=== PATIENT | female | born 1965 | race Caucasian/White ===

== ENCOUNTER 2016-10-16 12:12 | Emergency (ER) | payer OTHER ==
[~2016-10-16] VITALS: Ht 165.1 cm; Wt 136.7 kg
[~2016-10-16 12:12] MED LIST: ATV1 SL; CHOL100010 PO
[2016-10-16 12:23] VITALS: TEMP 36.7; Ht 165.1 cm; Wt 136.7 kg
--- NOTE | 2016-10-16 14:53 | EMERGENCY ROOM VISIT NOTE ---
History Report prepared by Jes: Roni Jauregui Under the Supervision of: Dr. Roxanne Mccann D.O. First contact with patient: 13:54 Chief Complaint: LEG PAIN,LEG INJURY Stated Complaint: FOOT PAIN RIGHT History of Present Illness The patient is a 50 year old female who presents to the Emergency Room with complaints of worsening right foot pain for the past six weeks. The patient states that it has recently gotten red within the past 24 hours, and she is having shooting pain up her right heel. She additionally states that she is having numbness, tingling, and burning. The patient states that she has a history of plantar fascitis, and she denies any recent injury. She states that she has been using orthotics, and she is taking Tylenol for the pain. The patient denies any recent long flights, history of blood clots, gout, kidney issues, diabetes, or rheumatic disease. The patient states that she took hydrocodone yesterday during the [employer]. The patient additionally states that the pain is worsened while there is no weight on the foot, and that is when there is shooting pain. Additionally, the patient states that she has had spots on her leg for about two years now. Pt denies headache, change in vision, fevers, chest pain, shortness of breath, nausea, vomiting, diarrhea, pain with urination, and melena. Source of History: patient Onset: six weeks Position: foot (right) Quality: tingling, burning, numbness, other (shooting) Timing: worsening Modifying Factors (Worsening): other (no weight) Associated Symptoms: + numbness Review of Systems See HPI for pertinent positives & negatives. A total of 10 systems reviewed and were otherwise negative. Past Medical & Surgical Surgical Problems: (1) History of appendectomy (2) Previous section Family History FHx: cancer Social History Smoking Status: Current Every Day Smoker Marital Status: Housing Status: lives with family Occupation Status: employed Current/Historical Medications Scheduled Cephalexin Monohydrate (Keflex), 500 MG PO QID Naproxen Sodium (Naprosyn Ds), 1 TAB PO BID Scheduled PRN Oxycodone/Acetaminophen 5MG/325MG (Percocet 5MG/325MG), 1 TAB PO Q4H PRN for Pain Allergies Coded Allergies: No Known Allergies (Verified , 8/21/17) Physical Exam Vital Signs Date Time Temp Pulse Resp B/P (MAP) Pulse Ox O2 Delivery O2 Flow Rate FiO2 10/16/16 15:39 73 132/73 95 Room Air 10/16/16 15:12 73 20 186/120 95 Room Air 10/16/16 12:23 36.7 89 20 206/103 98 Room Air Physical Exam GENERAL: alert, well appearing, well nourished, no distress, non-toxic, morbidly obese. EYE EXAM: normal conjunctiva, PERRL and EOM's grossly intact OROPHARYNX: no exudate, no erythema, lips, buccal mucosa, and tongue normal and mucous membranes are moist NECK: supple, no nuchal rigidity, no adenopathy, non-tender LUNGS: Clear to auscultation. Normal chest wall mechanics HEART: no murmurs, S1 normal and S2 normal ABDOMEN: abdomen soft, non-tender, normo-active bowel sounds, no masses, no rebound or guarding. BACK: Back is symmetrical on inspection and there is no deformity, no midline tenderness, no CVA tenderness. SKIN: no rashes and no bruising UPPER EXTREMITIES: upper extremities are grossly normal. LOWER EXTREMITIES: No joint effusion. No pitting edema. Two areas or erythema on the distal lower extremities bilateral pretibially. No vesicles, no ulcerations, mildly warm to the touch, no drainage, no evidence of trauma. Normal pulses and capillary refill. Right foot pain with palpation of the right heel. No calf tenderness. NEURO EXAM: Normal sensorium, cranial nerves II-XII grossly intact, normal speech, no gross weakness of arms, no gross weakness of legs. Gross sensation intact. Medical Decision & Procedures ER Provider Diagnostic Interpretation: Radiology results have been interpreted by the radiologist and reviewed by me. RIGHT HEEL 2 VIEWS CLINICAL HISTORY: Right heel pain. FINDINGS: AP and lateral views of the right heel are obtained. No prior studies are available for comparison at the time of dictation. The skeletal structures are well mineralized for age. There is no radiographic evidence of calcaneal fracture. A large plantar calcaneal enthesophyte is observed. Mild degenerative spurring is seen along the dorsal aspect of the tarsal bones. There is no ankle joint effusion. Mild soft tissue swelling is present around the ankle. IMPRESSION: Large plantar heel spur with no radiographic evidence of right heel fracture. Electronically signed by: Luis Calderon M.D. 10/16/2016 3:38 PM Dictated Date/Time: 10/16/2016 3:37 PM Medications Administered Medications (Trade) Dose Ordered Sig/Hermilo Route Start Time Stop Time Status Last Admin Dose Admin Cephalexin Monohydrate (Keflex Cap) 500 mg NOW ONCE PO 10/16/16 15:00 10/16/16 15:01 DC 10/16/16 15:09 500 MG Oxycodone/ Acetaminophen (Percocet 5-325mg Tab) 1 tab NOW STAT PO 10/16/16 14:55 10/16/16 14:56 DC 10/16/16 15:09 1 TAB Naproxen (Naprosyn Tab) 375 mg NOW STAT PO 10/16/16 14:55 10/16/16 14:56 DC 10/16/16 15:10 375 MG ED Course 1432: The patient was evaluated in room A12. A complete history and physical exam was performed. 1455: Naprosyn Tab 375mg PO, Percocet 5-325mg 1 Tab PO 1500: Keflex Cap 500mg PO 1554: I reevaluated the patient, and she was out smoking a cigarette. When she came back she stated that the pain medications helped, and I gave her the results Medical Decision Pt with right heel pain and b/l mild le cellulitis. Doubt DVT, no calf pain, no pitting edema, no evidence of trauma. Discussed right heel pain possible bone spur noted on xray vs plantar fasciitis. Doubt occult trauma. Likely pt' s weight contributing factor. No systemic symptoms to suggest and more severe infection. Pt able to ambulate outside to smoke while I was waiting for xray results. Discussed tobacco cessation with the patient. Discussed use of antibiotics, use of pain meds, sx to watch/return for, she verbalized understanding and was agreeable with plan. Medication Reconcilliation Current Medication List: was personally reviewed by me Blood Pressure Screening Patient's blood pressure: Elevated blood pressure Blood pressure disposition: Referred to PCP Impression Primary Impression: Pain of right heel Additional Impressions: Cellulitis Tobacco abuse Scribe Attestation The scribe's documentation has been prepared under my direction and personally reviewed by me in its entirety. I confirm that the note above accurately reflects all work, treatment, procedures, and medical decision making performed by me. Departure Information Dispostion Home / Self-Care Prescriptions Naproxen Sodium (NAPROSYN DS) 550 Mg Tab 1 TAB PO BID for 10 Days, #20 TAB Prov: Roxanne Mccann Alex, DO 10/16/16 Oxycodone/Acetaminophen 5MG/325MG (PERCOCET 5MG/325MG) Tab 1 TAB PO Q4H Y for Pain, #10 TAB Prov: Siobhan Roxanne Alex, DO 10/16/16 Cephalexin Monohydrate (Keflex) 500 Mg Cap 500 MG PO QID, #28 CAP Prov: TosinRoxanne parker, DO 10/16/16 Referrals Marilyn Potter (PCP) Forms HOME CARE DOCUMENTATION FORM, IMPORTANT VISIT INFORMATION Patient Instructions My [facility] Additional Instructions Please follow up with a local 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 Please take the antibiotic daily cellulitis on your legs. You may use the stronger pain medication as provided, however this may cause constipation. Do not take the stronger pain medication and drive or drink alcohol. You may continue using anti-inflammatories during the day, however do not take them on an empty stomach, and please drink more water. If you have any worsening pain, worsening swelling or redness, develop fevers, weakness, numbness or tingling, or any other new concerns, please return the emergency room. Problem Qualifiers Additional Impressions: Cellulitis Site of cellulitis: extremity Site of cellulitis of extremity: lower extremity Laterality: unspecified laterality Qualified Codes: L03.119 - Cellulitis of unspecified part of limb
[2016-10-16] MEDS ORDERED: NAPROXEN 375 MG TAB PO STA (14:55)
[2016-10-16] MEDS ORDERED: OXYCODONE/ACETAMINOPHEN 5-325 TAB PO STA (14:55)
[2016-10-16] MEDS ORDERED: CEPHALEXIN MONOHYDRATE 250 MG CAP PO ONE (15:00)
[2016-10-16 15:39] VITALS: BP 132/73; PULSE 73; O2SAT 95
--- NOTE | 2016-10-16 15:39 | DIAGNOSTIC IMAGING REPORT ---
RIGHT HEEL 2 VIEWS CLINICAL HISTORY: Right heel pain. FINDINGS: AP and lateral views of the right heel are obtained. No prior studies are available for comparison at the time of dictation. The skeletal structures are well mineralized for age. There is no radiographic evidence of calcaneal fracture. A large plantar calcaneal enthesophyte is observed. Mild degenerative spurring is seen along the dorsal aspect of the tarsal bones. There is no ankle joint effusion. Mild soft tissue swelling is present around the ankle. IMPRESSION: Large plantar heel spur with no radiographic evidence of right heel fracture. Electronically signed by: Luis Calderon M.D. 10/16/2016 3:38 PM Dictated Date/Time: 10/16/2016 3:37 PM
[2016-10-16] MEDS ORDERED: NAPR550T22 PO (16:03)
[2016-10-16] MEDS ORDERED: CEPH500C PO (16:03)
[2016-10-16] MEDS ORDERED: OXYC-57 PO (16:03)
== END 2016-10-16 16:15 | disposition home or self-care (01) ==
LOC: C.EDB 12:13 → C.EDA 16:15
DX: M79.671 Pain in right foot (principal); L03.119 Cellulitis of unspecified part of limb; F17.200 Nicotine dependence, unspecified, uncomplicated; M77.31 Calcaneal spur, right foot

== ENCOUNTER 2016-10-27 02:17 | Emergency (ER) | payer OTHER ==
[~2016-10-27] VITALS: Ht 165.1 cm; Wt 170.1 kg
[~2016-10-27 02:17] MED LIST changes: -ATV1 SL; +CEPH500C PO; -CHOL100010 PO; +NAPR550T22 PO; +OXYC-57 PO
[2016-10-27 02:20] VITALS: Ht 165.1 cm; Wt 170.1 kg
[2016-10-27] MEDS ORDERED: SODIUM CHLORIDE 0.9% 1000ML 1,000 ML IV STA (02:32)
[2016-10-27] MEDS ORDERED: FAMOTIDINE 20MG/102 ML D5W IV STA (02:32)
[2016-10-27] MEDS ORDERED: DiphenhydrAMINE HCL 50 MG/ML VIAL IV STA (02:32)
[2016-10-27] MEDS ORDERED: DEXAMETHASONE SOD INJ 10 MG/ML VIAL IV ONE (02:45)
[2016-10-27] MEDS ORDERED: HYDR-3124 PO (04:06)
[2016-10-27] MEDS ORDERED: METH4PAK PO (04:06)
--- NOTE | 2016-10-27 04:06 | EMERGENCY ROOM VISIT NOTE ---
History Report prepared by Jes: Alva Akbar Under the Supervision of: Dr. Moris Damon M.D. First contact with patient: 02:28 Chief Complaint: ALLERGIC REACTION Stated Complaint: HIVES History of Present Illness The patient is a 50 year old female who presents to the Emergency Room with complaints of an episode of an allergic reaction starting two days ago. The patient states that tonight her hives became worse and that she woke up feeling like she is on fire. She states that she took Benadryl four hours ago with no relief. The patient currently rates her pain as a 5/10 in severity. She denies throat and tongue swelling. She states that she has had an episode like this in the past, but it has been a while. The patient reports that she is coming off Keflex and just finished a Prednisone taper for her foot pain. Source of History: patient Onset: two days ago Position: other (global) Symptom Intensity: 5/10 Quality: other (global) Timing: other (episode) Associated Symptoms: + rash Note: The patient denies throat swelling and tongue swelling. Review of Systems See HPI for pertinent positives & negatives. A total of 10 systems reviewed and were otherwise negative. Past Medical & Surgical Surgical Problems: (1) History of appendectomy (2) Previous section Family History FHx: cancer Social History Smoking Status: Current Every Day Smoker Marital Status: Housing Status: lives with family Occupation Status: employed Current/Historical Medications Scheduled Cephalexin Monohydrate (Keflex), 500 MG PO QID Methylprednisolone (Medrol Dosepak), 1 PKT PO UD Scheduled PRN Hydroxyzine Hcl (Atarax), 25-50 MG PO Q6H PRN for ALLERGIC REACTION Oxycodone/Acetaminophen 5MG/325MG (Percocet 5MG/325MG), 1 TAB PO Q4H PRN for Pain Allergies Coded Allergies: No Known Allergies (Verified , 10/16/16) Physical Exam Vital Signs Date Time Temp Pulse Resp B/P (MAP) Pulse Ox O2 Delivery O2 Flow Rate FiO2 10/27/16 04:13 36.4 68 20 198/86 97 10/27/16 03:31 68 20 198/86 97 Room Air 10/27/16 02:44 Room Air 10/27/16 02:20 36.4 74 18 218/110 96 Room Air Physical Exam GENERAL: Patient is well appearing and in mild distress. HEENT: No acute trauma, normocephalic atraumatic, mucous membranes moist, no nasal congestion, no scleral icterus. NECK: No stridor, no adenopathy, no meningismus, trachea is midline. LUNGS: No dyspnea. Clear to auscultation and equal bilaterally. No wheeze, no rhonchi. HEART: Regular rate and rhythm. No murmurs, rubs, gallops appreciated. ABDOMEN: Soft, nontender, bowel sounds positive, no masses appreciated, no peritonitis. BACK: No midline tenderness, no CVA tenderness EXTREMITIES: Normal motion all extremities, no cyanosis, no edema. NEUROLOGIC: Alert and oriented, no acute motor or sensory deficits, no focal weakness, cranial nerves grossly intact. SKIN: Diffuse hives, urticarial rash, no jaundice, no diaphoresis. Medical Decision & Procedures Medications Administered Medications (Trade) Dose Ordered Sig/Hermilo Route Start Time Stop Time Status Last Admin Dose Admin Famotidine (Pepcid 20mg/100 ml) 20 mg ONE STAT IV 10/27/16 02:32 10/27/16 02:33 DC 10/27/16 02:41 20 MG Diphenhydramine HCl (Benadryl Inj) 50 mg NOW STAT IV 10/27/16 02:32 10/27/16 02:33 DC 10/27/16 02:40 50 MG Dexamethasone Sodium Phosphate (Decadron Inj) 10 mg NOW ONCE IV 10/27/16 02:45 10/27/16 02:46 DC 10/27/16 02:39 10 MG Sodium Chloride 1,000 ml @ 999 mls/hr Q1H1M STAT IV 10/27/16 02:32 10/27/16 03:32 DC 10/27/16 02:39 999 MLS/HR ED Course 0228: The patient was evaluated in room B10. A complete history and physical exam was performed. 0232: Ordered NSS 1000 ml @ 999 mls/hr IV, Benadryl inj 50 mg IV, Famotidine 20 mg IV. 0245: Ordered Decadron Inj 10 mg IV. 0359: Reevaluated the patient. She is feeling much better and is comfortable going home. I advised the use of peptic or Zantac as an outpatient and talked to her about her elevated blood pressure. She said she checks her blood pressure regularly at home, but will follow up with her PCP about it. Discussed results and discharge instructions: she verbalized understanding and agreement. The patient is ready for discharge. Medical Decision Differential: Allergic Reaction, Urticaria, Anaphylaxis, Rodarte-Griffin Syndrome, Toxic Epidermal Necrolysis, Erythema Multiforme, Cellulitis, amongst other etiologies entertained. 50 yr old female with diffuse hives/urticaria over most of body. No clear etiology of why allergic reaction though she ntoes in patient previously had issues with hives. Having just finished steroids will do taper. Advised Pepcid /Zantac along with PRN Benadryl. Atarax rx as she notes previously this has helped well. She is stable, feeling better and breathing comfortably after above medications. Reviewed symptoms requiring RTED. Blood Pressure Screening Patient's blood pressure: Elevated blood pressure Blood pressure disposition: Did not require urgent referral Impression Primary Impression: Allergic reaction Additional Impressions: Urticaria Hypertension Scribe Attestation The scribe's documentation has been prepared under my direction and personally reviewed by me in its entirety. I confirm that the note above accurately reflects all work, treatment, procedures, and medical decision making performed by me. Departure Information Dispostion Home / Self-Care Prescriptions Methylprednisolone (MEDROL DOSEPAK) 4 Mg Yousuf 1 PKT PO UD for 6 Days, #1 PKT Prov: Moris Damon M.D. 10/27/16 Hydroxyzine Hcl (ATARAX) 25 Mg Tab 25-50 MG PO Q6H Y for ALLERGIC REACTION, #20 TAB Prov: Moris Damon M.D. 10/27/16 Referrals Marilyn Potter (PCP) Forms HOME CARE DOCUMENTATION FORM, IMPORTANT VISIT INFORMATION Patient Instructions ED Allergic Reaction General Other, My [facility] Additional Instructions Your blood pressure was elevated during this visit. This is quite common in many people who are being evaluated in the Emergency Department for many reasons. However, it is important that you have your Primary Care Provider recheck your blood pressure and discuss whether treatment will be needed. 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 If you develop severe headaches, chest pain, weakness in arms or legs, or other concerning symptoms call 911. Problem Qualifiers
[2016-10-27 04:13] VITALS: BP 198/86; PULSE 68; TEMP 36.4; O2SAT 97
== END 2016-10-27 04:19 | disposition home or self-care (01) ==
LOC: C.EDB 02:18
DX: L50.0 Allergic urticaria (principal); I10 Essential (primary) hypertension; Z80.9 Family history of malignant neoplasm, unspecified; F17.210 Nicotine dependence, cigarettes, uncomplicated

== ENCOUNTER → 2017-01-13 | Outpatient (CLI) | payer OTHER ==
[~2017-01-13] MED LIST changes: -NAPR550T22 PO
[2017-01-13 13:20] LABS: ALT/SGPT 27 U/L (12-78); BLOOD UREA NITROGEN 15 mg/dl (7-18); BUN/CREATININE RATIO 16.8 (10-20); CALCIUM 8.6 mg/dl (8.5-10.1); CARBON DIOXIDE 28 mmol/L (21-32); CHLORIDE 103 mmol/L (98-107); CHOLESTEROL 167 mg/dl (0-200); CREATININE 0.92 mg/dl (0.60-1.20); GLUCOSE 107 mg/dl (70-99); POTASSIUM 4.2 mmol/L (3.5-5.1); SODIUM 139 mmol/L (136-145)
[2017-01-13 13:30] LABS: ESTIMATED AVERAGE GLUCOSE 108 mg/dl; HA1C FLAG Normal (Normal)
[2017-01-13 13:31] LABS: ALB/GLOB RATIO 0.9 (0.9-2); ALKALINE PHOSPHATASE 81 U/L (45-117); AST/SGOT 16 U/L (15-37); CHOLESTEROL/HDL RATIO 3.5; HDL CHOLESTEROL 48 mg/dl; LDL CHOLESTEROL CALCULATED 84 mg/dl; TRIGLYCERIDES 173 mg/dl (0-150); VERY LOW DENSITY LIPOPROT CALC 35 mg/dl
== END | disposition home or self-care (01) ==
LOC: C.LABPVFM 08:09
PROVIDERS: ATTEND Nurse Practitioner Family
DX: I10 Essential (primary) hypertension (principal); E66.01 Morbid (severe) obesity due to excess calories

== ENCOUNTER 2023-02-05 09:53 | Inpatient (IN) ==
--- NOTE | 2023-02-05 10:48 | XRay Report ---
TWO VIEW CHEST CLINICAL HISTORY: Dyspnea. FINDINGS: PA and lateral chest radiographs are compared to study dated 05/01/2022. Correlation is made with chest CT dated 09/22/2019. The patient is status post midline sternotomy and cardiac valve surger y. The heart is enlarged. There is prominence of the pulmonary vasculature. No airspace consolidation or pleural effusion is identified. There is no pneumothorax. The skeletal structures are osteopenic. The bony thorax appears intact. IMPRESSION: 1. Cardiomegaly with prominence of the pulmonary vasculature. Correlate clinically for evidence of mi ld fluid overload/congestive change. 2. No airspace consolidation or pleural effusion is identified. ACT 112: Negative or not required by law. Electronically signed by: Luis Calderon M.D. 02/05/2023 10:47 AM
--- NOTE | 2023-02-05 11:19 | Emergency Department Note ---
Impression & Plan Hypoxia DC ED Provider Note HPI: History obtained from patient. The patient is a 57-year-old female with history of type 2 diabetes, morbid obesity, coronary artery disease, presents emergency department chief complaint of cough and shortness of breath. Patient states that her symptoms have been worsening over about the past 4 days. Patient states that the symptoms have also been going through her house as her and her son also have symptoms of dry cough. Patient denies any current chest pain, on arrival here to the ED the patient is mildly hypertensive at 144/80, she is otherwise hemodynamically stable and in no acute distress on my initial assessment. ROS: - Per HPI Differential Diagnosis: Acute CHF exacerbation, pulmonary edema, pneumonia, viral URI, acute coronary syndrome, pulmonary embolism, amongst other potential pathologies. *Outpatient medications and allergy history reviewed. 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: (As interpreted by myself): - An order was placed for continuous cardiac monitoring - Patient was noted to be in sinus rhythm with a rate of 90 EKG: (As interpreted by myself): Rate: 77 Rhythm: Normal sinus rhythm Intervals: Within normal limits ST changes: No ST elevation Time: 1108 Chest x-ray: (As interpreted by myself): No pneumonia Interventions provided in ED: -DuoNeb breathing treatment, IV Solu-Medrol, Tamiflu Medical Decision Making: IV was established and lab work obtained, patient was placed on facility sales and admin, shortly after the patient was triaged and put on the monitor she was noted to have episodes of hypoxia at 86% on room air and therefore was placed on supplemental oxygen with good improvement. Lab work shows no leukocytosis, hemoglobin is normal, platelet count is normal, venous blood gas shows pH of 7.35 and pCO2 slightly elevated at 55, CMP does not show any critical findings, troponin is negative, BNP is within normal limits. Viral panel testing was obtained and the patient is positive for influenza A. Chest x-ray per my interpretation does not show any evidence of a focal pneumonia. Patient was ordered DuoNeb breathing treatment, IV Solu-Medrol, she appears improved now on nasal cannula oxygen. I discussed all the above findings with the patient and her , patient is in agreement for admission given her new oxygen requirement. Given her hypoxia, obesity, and multiple comorbidities she was ordered Tamiflu. I discussed all the above findings with the on-call hospitalist service, Allan Weinstein PA-C, and the patient was placed for admission in stable condition. Consultants/Discussions held with other healthcare providers: -Allan Weinstein PA-C, hospitalist service of Dr. Parrish Disposition discussion held by myself with: -Patient * CRITICAL CARE TIME: ( 37 ) minutes -Stabilization of hypoxia with oxygen saturations at 86% on room air requiring supplemental oxygen for correction, interpretation of diagnostic studies, time spent at the bedside, discussion with other healthcare providers and arrangement of admission Diagnosis: 1. Hypoxia, acute 2. Influenza A infection, acute 3. Morbid obesity with BMI greater than 60 4. History of coronary artery disease 5. History of type 2 diabetes 6. Acute bronchospasm Disposition: Admission Nico Mosquera DO Emergency Medicine Past Med/Surg History Medical History Fatty liver Mitral valve disorder Borderline high cholesterol Umbilical hernia Hypothyroidism Hypertension Sleep apnea Obesity Surgical History History of colonoscopy History of section Difficult airway for intubation History of bilateral tubal ligation History of tooth extraction History of wisdom tooth extraction History of tonsillectomy and adenoidectomy History of myringotomy Previous section Family History Mother Family history of reaction to anesthesia "extremely small airway and sleep apnea" Social History Smoking Status: Current every day smoker Tobacco Type: Cigarettes Cigarettes Per Day: 1/2 pack; Second Hand Exposure: No; Do You Dip or Chew Tobacco: No; Tobacco Cessation Education Requested by Patient: Yes Hx Alcohol Use: No Hx Substance Use: No Preferred Language: [place] Communication Ability: Effective Tentmaker Required: No Beliefs That Will Affect Care: None marital status: Current Living Situation: Spouse Current Living Situation Comment: Lives with and son 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 Other Information That Helps Us Care for You: No Feels Safe at Home: Yes Safety Concerns: Feels Safe At This Time Assistive Devices: CPAP and Glasses Allergies Allergies Allergy/AdvReac Type Severity Reaction Status Date / Time red dye Allergy Severe Hives Verified 12/28/22 13:53 Home Meds Home Medications Medication Instructions Recorded Confirmed guaifenesin 600 mg tablet, 1,200 mg PO Q12H 02/17/18 02/05/23 extended release 12 hr (Mucinex) clindamycin phosphate-skin 1 ea topical UD PRN Other 12/12/19 02/05/23 cleanser combo no.19 1 % topical kit furosemide 80 mg tablet 80 mg PO DAILY PRN leg swelling 06/07/22 02/05/23 gabapentin 600 mg tablet 600 mg PO HS 06/07/22 02/05/23 levocetirizine [Xyzal] PO QPM 06/07/22 12/28/22 melatonin PO QPM 06/07/22 12/28/22 potassium chloride 10 mEq 20 meq PO QAM PRN diuretic use 06/07/22 02/05/23 tablet,extended release(part/cryst) Saccharomyces boulardii 250 mg 250 mg PO DAILY 07/19/22 02/05/23 capsule (Probiotic (S.boulardii)) Previous Rx's Medication Instructions Recorded atorvastatin 40 mg tablet (Lipitor) 40 mg PO DAILY #90 tabs 03/22/22 metoprolol tartrate 25 mg tablet 25 mg PO BID #180 tabs 03/22/22 bupropion HCl 150 mg 24 hr tablet, 150 mg PO QAM #30 tabs 12/18/22 extended release blood sugar diagnostic (OneTouch #100 ea 12/28/22 Verio test strips) blood-glucose meter (OneTouch #1 ea 12/28/22 Verio Flex Meter) buspirone 10 mg tablet 5 - 10 mg (0.5 - 1 x 10 mg) PO TID 12/28/22 PRN anxiety #60 tabs cholecalciferol (vitamin D3) 50 50 mcg PO DAILY #30 caps 12/28/22 mcg (2,000 unit) capsule lancing device with lancets kit #100 ea 12/28/22 ([employer] Delica Plus Lancing Device kit) tirzepatide 5 mg/0.5 mL See Rx Instructions .Route 01/29/23 subcutaneous pen injector .COMPLEX #2 mL Results & Data (ED) Vital Signs Vital Signs - 24 hr 02/05/23 10:23 02/05/23 10:26 02/05/23 11:30 Temperature 36.6 C Temperature Source Oral Pulse Rate 24 L Pulse Rate [Left Finger] 78 Respiratory Rate 24 21 Respiratory Effort / Characteristics Non-Labored Spontaneous Non-Labored Spontaneous Respiratory Depth Normal Normal Respiratory Pattern Regular Blood Pressure 144/80 H Blood Pressure [Left Arm] 166/89 H Blood Pressure Mean 101 Blood Pressure Mean [Left Arm] 114 Pulse Oximetry 91 86 L Oxygen Delivery Method Room Air Room Air Room Air Oxygen Flow Rate Sepsis Recent Fever Within 48 Hours No Sepsis New/Unexplained Change in Mental Status N/A Sepsis Action Taken by Nursing No Action Required Oxygen Flow Rate - Titration Pulse Oximetry Post Tiitration 02/05/23 11:30 02/05/23 11:41 02/05/23 11:59 Temperature Temperature Source Pulse Rate Pulse Rate [Left Finger] 77 Respiratory Rate 22 Respiratory Effort / Characteristics Respiratory Depth Respiratory Pattern Blood Pressure Blood Pressure [Left Arm] 122/72 Blood Pressure Mean Blood Pressure Mean [Left Arm] 88 Pulse Oximetry 93 86 L 93 Oxygen Delivery Method Nasal Cannula Room Air Nasal Cannula Nasal Cannula Oxygen Flow Rate 2 0 2 Sepsis Recent Fever Within 48 Hours Sepsis New/Unexplained Change in Mental Status Sepsis Action Taken by Nursing Oxygen Flow Rate - Titration 2 Pulse Oximetry Post Tiitration 93 Laboratory Data 02/05/23 11:11 02/05/23 11:11 Lab Results 02/05/23 02/05/23 Range/Units 10:30 11:11 WBC 6.33 (4.8-10.8) K/ul RBC 5.27 (4.20-5.40) M/uL Hgb 15.1 (12.0-16.0) g/dl Hct 46.6 (37.0-47.0) % MCV 88.4 (80.0-100.0) fL MCH 28.7 (25.0-34.0) pg MCHC 32.4 (32.0-36.0) g/dL RDW Std Deviation 52.6 H (36.4-46.3) fL RDW Coeff of Michael 16.2 H (11.5-14.5) % Plt Count 180 (130-400) K/uL MPV 9.3 L (9.4-12.4) fL Immature Gran % (Auto) 0.3 % Neut % (Auto) 72.3 % Lymph % (Auto) 15.5 % [place] % (Auto) 10.7 % Eos % (Auto) 0.9 % Baso % (Auto) 0.3 % Neut # (Auto) 4.57 (1.40-6.50) K/uL Lymph # (Auto) 0.98 L (1.20-3.40) K/uL [place] # (Auto) 0.68 H (0.11-0.59) K/uL Eos # (Auto) 0.06 (0.00-0.50) K/uL Baso # (Auto) 0.02 (0.00-0.20) K/uL Immature Gran # (Auto) 0.02 (0.01-0.20) K/uL Sodium 139 (136-145) mmol/L Potassium 3.8 (3.5-5.1) mmol/L Chloride 103 (98-107) mmol/L Carbon Dioxide 29 (21-32) mmol/L Anion Gap 7 (3-11) BUN 18 (6-23) mg/dl Creatinine 0.96 (0.6-1.2) mg/dl Est Cr Clr Drug Dosing 104.5 ml/min Est GFR ( Amer) 75.0 ml/min Est GFR (Non-Af Amer) 64.7 ml/min BUN/Creatinine Ratio 18.8 (10-20) Glucose 115 H (70-99(Fasting)) mg/dl Calcium 9.5 (8.6-10.3) mg/dl Total Bilirubin 0.6 (0.2-1.0) mg/dl AST 54 H (13-39) U/L ALT 35 (7-52) U/L Alkaline Phosphatase 96 (34-104) U/L Troponin I High Sens 6.8 (0-14) pg/ml Total Protein 6.8 (6.0-8.3) gm/dl Albumin 3.8 (3.4-5.0) gm/dl Globulin 3.0 (2.5-4.0) gm/dl Albumin/Globulin Ratio 1.3 (0.9-2) SARS-CoV-2 (PCR) NEGATIVE (Negative) Influenza Type A (PCR) Positive A* (Neg) Influenza Type B (PCR) Negative (Neg) RSV (RT-PCR) Negative (Neg) Administered Medications Enoxaparin Sodium (Enoxaparin 100 Mg/1ml Syr) 90 mg SQ Q24H [facility] Stop: 03/07/23 15:59 Last Admin: 02/05/23 15:54 Dose: Not Given Documented By: CHELLE Insulin Aspart (Insulin Aspart Per Unit Charge) 0 units SC ACHS [facility] Stop: 03/07/23 16:29 Last Admin: 02/05/23 15:54 Dose: Not Given Documented By: CHELLE Discontinued Medications Albuterol (Albut/Ipratrop 3mg/0.5mg Neb 3 Ml Vial) 3 ml NEB NOW STA; Protocol Stop: 02/05/23 12:14 Last Admin: 02/05/23 12:42 Dose: 3 ml Documented By: OSMAR Furosemide (Furosemide 40 Mg/4 Ml Vial) 80 mg IV ONE ONE Stop: 02/05/23 13:10 Last Admin: 02/05/23 13:46 Dose: 80 mg Documented By: XENIA Guaifenesin/Codeine Phosphate (Guaifenesin/Codeine 100mg/10mg 5ml Udc) 10 ml PO NOW STA Stop: 02/05/23 13:01 Last Admin: 02/05/23 13:46 Dose: 10 ml Documented By: XENIA Insulin Glargine (Lantus Per Unit Charge) 0 units SQ QDD [facility]; Protocol Stop: 02/05/23 16:31 Last Admin: 02/05/23 15:54 Dose: Not Given Documented By: CHELLE Methylprednisolone (Methylprednisolone 125 Mg/2 Ml Vial) 125 mg IV NOW STA Stop: 02/05/23 12:14 Last Admin: 02/05/23 12:41 Dose: 125 mg Documented By: OSMAR Oseltamivir Phosphate (Oseltamivir Phosphate 75 Mg Cap) 75 mg PO NOW STA; Protocol Stop: 02/05/23 12:06 Last Admin: 02/05/23 12:42 Dose: 75 mg Documented By: OSMAR Imaging Data Radiologist's Impression: Chest X-Ray 02/05/23 10:28 TWO VIEW CHEST CLINICAL HISTORY: Dyspnea. FINDINGS: PA and lateral chest radiographs are compared to study dated 05/01/2022. Correlation is made with chest CT dated 09/22/2019. The patient is status post midline sternotomy and cardiac valve surgery. The heart is enlarged. There is prominence of the pulmonary vasculature. No airspace consolidation or pleural effusion is identified. There is no pneumothorax. The skeletal structures are osteopenic. The bony thorax appears intact. IMPRESSION: 1. Cardiomegaly with prominence of the pulmonary vasculature. Correlate clinically for evidence of mild fluid overload/congestive change. 2. No airspace consolidation or pleural effusion is identified. ACT 112: Negative or not required by law. Electronically signed by: Luis Calderon M.D. 02/05/2023 10:47 AM Discharge Plan Visit Data Chief Complaint: Shortness of Breath/Dyspnea Stated Complaint: SOB, COUGHING ED Provider: Nico Mosquera Discharge Problem: Hypoxia Patient Disposition: Admitted As Inpatient Discharge Instructions Interventions: ED Discharge Assessment Last Done: 02/05/23 14:55
[2023-02-05 11:34] LABS: Basophils # (auto) 0.02 K/uL (0.00-0.20); Basophils % (auto) 0.3 %; Eosinophils # (auto) 0.06 K/uL (0.00-0.50); Eosinophils % (auto) 0.9 %; Hematocrit (blood only) 46.6 % (37.0-47.0); Hemoglobin 15.1 g/dl (12.0-16.0); Immature Granulocytes # (auto) 0.02 K/uL (0.01-0.20); Immature Granulocytes % (auto) 0.3 %; Lymphocytes # (auto) 0.98 K/uL (1.20-3.40); Lymphocytes % (auto) 15.5 %; Mean Corpuscular Hemoglobin 28.7 pg (25.0-34.0); Mean Corpuscular Hgb Conc 32.4 g/dL (32.0-36.0); Mean Corpuscular Volume 88.4 fL (80.0-100.0); Mean Platelet Volume 9.3 fL (9.4-12.4); Monocytes # (auto) 0.68 K/uL (0.11-0.59); Monocytes % (auto) 10.7 %; Neutrophils # (auto) 4.57 K/uL (1.40-6.50); Neutrophils % (auto) 72.3 %; Platelet Count 180 K/uL (130-400); RDW Coefficient of Variation 16.2 % (11.5-14.5); RDW Standard Deviation 52.6 fL (36.4-46.3); Red Blood Count 5.27 M/uL (4.20-5.40); White Blood Count 6.33 K/ul (4.8-10.8)
[2023-02-05 11:38] LABS: Influenza B virus by PCR Negative (Neg); RSV by PCR Negative (Neg); SARS CoV2 RNA(COVID-19) Ceph NEGATIVE (Negative)
[2023-02-05 11:45] LABS: Albumin Globulin Ratio 1.3 (0.9-2); Albumin Level 3.8 gm/dl (3.4-5.0); BUN Creatinine Ratio 18.8 (10-20); Bilirubin,Total 0.6 mg/dl (0.2-1.0); Calcium 9.5 mg/dl (8.6-10.3); Creatinine Clr Calc Pharmacy 104.5 ml/min; Est GFR (Non-African American) 64.7 ml/min; Potassium 3.8 mmol/L (3.5-5.1); Total Protein 6.8 gm/dl (6.0-8.3)
[2023-02-05 11:51] LABS: Troponin I High Sensitivity 6.8 pg/ml (0-14)
[2023-02-05 12:00] LABS: Influenza A virus by PCR Positive (Neg)
[2023-02-05] MEDS ORDERED: OSELTAMIVIR PHOSPHATE 75 MG CAP PO STA (12:05)
[2023-02-05] MEDS ORDERED: ALBUT/IPRATROP 3MG/0.5MG NEB 3 ML VIAL NEB STA (12:13)
[2023-02-05] MEDS ORDERED: methylPREDNISolone 125 MG/2 ML VIAL IV STA (12:13)
--- NOTE | 2023-02-05 12:23 | History & Physical Report ---
Date of Service February 05, 2023 Assessment & Plan (1) Hypoxia: Plan: -Admit to med/tele on pulse oximetry -Currently stable on 2L NC, no on home O2 therapy -Etiology is likely multifactorial including acute influenza A infection, obesity hypoventilation syndrome, tobacco abuse, known hx of NANI, and possible volume overload -While she is an babsj-ksd-xshysy, she had negative PFT's approximately 2 years ago during preoperative testing, will hold atypical coverage at this time -No leukocytosis or focal consolidation on chest xray to suggest bacterial pneumonia at this time -Lower suspicion for PE at this time as the patient has been hemodynamically stable and without pleuritic chest discomfort, will continue to monitor for signs/symptoms -CXR does show Cardiomegaly with prominence of pulmonary vasculature, will add on BNP for further evaluation -Received first dose of Tamiflu in the ED, will continue BID dosing for 5 days -S/P 125 mg IV Solu-Medrol in the ED, will continue with 60 mg IV BID17 as she is significantly wheezy on exam -Prn Guaifenesin/Codeine for cough -Prn O2 to keep SpO2 at or above 94% -SQ lovenox for DVT PPX -HH/DMII diet with 2gm sodium restriction -AM CBC, CMP, Mag, PT/INR (2) Influenza A: Plan: -Positive today -Continue BID Tamiflu for 5 days -Continue supportive treatment per hypoxia plan (3) (HFpEF) heart failure with preserved ejection fraction: Plan: -Patient has not been using prn 80 mg PO lasix as she states she has not needed it recently -Normally uses for increased LE swelling -CXR today shows cardiomegaly with increased pulmonary vascular congestion -BNP will be obtained on admission -Will start 80 mg IV lasix daily today as she likely needs some degree of diuresis -If BNP is significantly elevated will obtain TTE -Monitor daily renal function and electrolytes, as-well-as intake/output and daily weights (4) Generalized weakness: Plan: -Likely due to her acute influenza infection -Continue to monitor for improvement with adequate treatment (5) Uncontrolled type 2 diabetes mellitus with hyperglycemia, without long-term current use of insulin: Plan: -Hold Mounjaro -Monitor BSG ACHS goal is 110-160 while on IV steroids -Not on basal/bolus regimen at home but will start while admitted on IV steroids -Will start 10 units Lantus BID, CF of 30, and CR of 12 ACHS -HH/DMII diet with 2gm sodium restriction -Pharmacy glycemic consult placed (6) Sleep apnea: Plan: -HS CPAP ordered (7) Tobacco use: Plan: -Continue to encourage smoking cessation, patient is motivated and currently trying -Will continue Wellbutrin -Patient declined need for nicotine patches/gum at this time (8) Hypertension: Plan: -Stable -Continue metoprolol -Monitor while on IV diuresis (9) PAF (paroxysmal atrial fibrillation): Plan: -Currently in NSR -Not on anticoagulation as she has had infrequent episodes and previous history of severe bleeding on Warfarin -Continue metoprolol -Monitor on tele Plan The patient was discussed with Dr. Parrish at the time of the admission History of Present Illness Chief Complaint: Cough, generalized weakness Primary Care Provider: NO PCP Lo is an 87 year old female with a PMH significant for morbid obesity, current tobacco abuse, PAF not on anticoagulation, anxiety, HFpEF, DMII, CAD, and previous mitral valve replacement who presented to the [facility] ED on 02/05 with a 3 day history of cough and generalized weakness. She was noted to be hypoxic at 86% on RA on ED arrival but otherwise stable. Labs were significant for being influenza A positive, Covid 19/Influenza B/RSV negative, and an AST of 54. Chest xray was read as 1. Cardiomegaly with prominence of the pulmonary vasculature. Correlate clinically for evidence of mild fluid overload/congestive change. 2. No airspace consolidation or pleural effusion is identified.. Prior to admission the patient was given a dose of Tamiflu, a duoneb treatment, and 125 mg IV Solu-Medrol. At the time of the exam the patient was sitting in bed in no acute distress with her sitting bedside. She states that she started to develop a non-productive cough, wheezing, DIAMOND, and generalized weakness on 02/02. Symptoms progressed to the point that she was significantly dyspneic and generally weak leading to ED visit. When asked, she states that she has been a one PPD smoker for 20+ years but denies a formal COPD diagnosis. She uses prn lasix for LE swelling but states that she has not had to use this for some time. She does not use home O2 therapy and does use HS CPAP nightly otherwise she is unable to sleep. Regarding her hx of PAF, she has only had one, 12 second episode on previous holter monitoring. She was on Coumadin in the past but this was stopped due to serious vaginal bleeding. She currently feels well at rest but is getting significantly SOB with exertion, which is not her baseline. She confirms that her DIAMOND started with her other respiratory symptoms on 02/02. She is a full code and would want her to make medical decisions for her if she cannot make decisions herself. She would like to continue Tamiflu at this time. Please refer to Dr. Castillo's attestation for any changes to the treatment plan Allergies Allergy/AdvReac Type Severity Reaction Status Date / Time red dye Allergy Severe Hives Verified 12/28/22 13:53 Home Medications Medication Instructions Recorded Confirmed Type guaifenesin 600 mg tablet, 1,200 mg PO Q12H 02/17/18 02/05/23 History extended release 12 hr (Mucinex) clindamycin phosphate-skin 1 ea topical UD PRN Other 12/12/19 02/05/23 History cleanser combo no.19 1 % topical kit atorvastatin 40 mg tablet (Lipitor) 40 mg PO DAILY #90 tabs 03/22/22 02/05/23 Rx metoprolol tartrate 25 mg tablet 25 mg PO BID #180 tabs 03/22/22 02/05/23 Rx furosemide 80 mg tablet 80 mg PO DAILY PRN leg swelling 06/07/22 02/05/23 History gabapentin 600 mg tablet 600 mg PO HS 06/07/22 02/05/23 History levocetirizine [Xyzal] PO QPM 06/07/22 12/28/22 History melatonin PO QPM 06/07/22 12/28/22 History potassium chloride 10 mEq 20 meq PO QAM PRN diuretic use 06/07/22 02/05/23 History tablet,extended release(part/cryst) Saccharomyces boulardii 250 mg 250 mg PO DAILY 07/19/22 02/05/23 History capsule (Probiotic (S.boulardii)) bupropion HCl 150 mg 24 hr tablet, 150 mg PO QAM #30 tabs 12/18/22 02/05/23 Rx extended release blood sugar diagnostic (OneTouch #100 ea 12/28/22 12/28/22 Rx Verio test strips) blood-glucose meter (OneTouch #1 ea 12/28/22 12/28/22 Rx Verio Flex Meter) buspirone 10 mg tablet 5 - 10 mg (0.5 - 1 x 10 mg) PO TID 12/28/22 02/05/23 Rx PRN anxiety #60 tabs cholecalciferol (vitamin D3) 50 50 mcg PO DAILY #30 caps 12/28/22 02/05/23 Rx mcg (2,000 unit) capsule lancing device with lancets kit #100 ea 12/28/22 12/28/22 Rx (OneTouch Delica Plus Lancing Device kit) tirzepatide 5 mg/0.5 mL See Rx Instructions .Route 01/29/23 02/05/23 Rx subcutaneous pen injector .COMPLEX #2 mL Past Med/Surg History Medical History Fatty liver Mitral valve disorder Borderline high cholesterol Umbilical hernia Hypothyroidism Hypertension Sleep apnea Obesity Surgical History History of colonoscopy History of section Difficult airway for intubation History of bilateral tubal ligation History of tooth extraction History of wisdom tooth extraction History of tonsillectomy and adenoidectomy History of myringotomy Previous section Family History Mother Family history of reaction to anesthesia "extremely small airway and sleep apnea" Social History Smoking Status: Former smoker Tobacco Type: Cigarettes Cigarettes Per Day: 10 a day; Second Hand Exposure: Yes; Do You Dip or Chew Tobacco: No; Hx Alcohol Use: No Hx Substance Use: No Preferred Language: Ethiopian Communication Ability: Effective 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: No Beliefs That Will Affect Care: None marital status: Current Living Situation: Spouse and Family Current Living Situation Comment: Lives with and son 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 Feels Safe at Home: Yes Assistive Devices: CPAP and Glasses Physical Exam Physical Exam: Physical Exam: General: In no acute distress, stated age, morbidly obese and ill appearing but non-toxic HEENT: Normocephalic, atraumatic, no scleral icterus, pupils around round, symmetrical, and reactive to light, moist mucus membranes, trachea midline, no thyromegaly Chest/Pulm: No respiratory distress, symmetrical chest expansion, crackles noted in the BL lower lung araujo with scattered expiratory wheezing BL Cardiac: RRR, 2/6 systolic murmur noted Abdomen: Negative for ascites and bruising, normoactive bowel sounds, soft, non-tender to palpation throughout Musculoskeletal: Symmetrical and without signs of acute trauma, upper and lower extremities with full ROM, no atrophy, spasticity, or flaccidity Extremities: Radial, dorsalis pedis, and posterior tibial pulses are intact and symmetrical, no pitting edema noted in the BL LE's Skin: Warm, dry, no rashes , lesions, or scars noted Neuro: Alert and oriented to person, place, month, year, and president, no focal defects,no tremors noted Psych: No acute distress, calm and cooperative during the exam Results & Data Results & Data Vital Signs (Past 12 Hours) Vital Signs Temp Pulse Pulse Resp BP BP Pulse Ox 02/05/23 11:59 77 22 122/72 93 02/05/23 11:41 86 L 02/05/23 11:30 93 02/05/23 11:30 78 21 166/89 H 86 L 02/05/23 10:26 02/05/23 10:23 36.6 C 24 L 24 144/80 H 91 O2 Del Method O2 Flow Rate 02/05/23 11:59 Nasal Cannula 2 02/05/23 11:41 Room Air, Nasal Cannula 0 02/05/23 11:30 Nasal Cannula 2 02/05/23 11:30 Room Air 02/05/23 10:26 Room Air 02/05/23 10:23 Room Air Laboratory Results Abnormal lab results 02/05/23 02/05/23 Range/Units 10:30 11:11 RDW Std Deviation 52.6 H (36.4-46.3) fL RDW Coeff of Michael 16.2 H (11.5-14.5) % MPV 9.3 L (9.4-12.4) fL Lymph # (Auto) 0.98 L (1.20-3.40) K/uL Gaston # (Auto) 0.68 H (0.11-0.59) K/uL Glucose 115 H (70-99(Fasting)) mg/dl AST 54 H (13-39) U/L Influenza Type A (PCR) Positive A* (Neg) Diagnostic Findings Chest X-Ray 02/05/23 10:28 TWO VIEW CHEST CLINICAL HISTORY: Dyspnea. FINDINGS: PA and lateral chest radiographs are compared to study dated 05/01/2022. Correlation is made with chest CT dated 09/22/2019. The patient is status post midline sternotomy and cardiac valve surgery. The heart is enlarged. There is prominence of the pulmonary vasculature. No airspace consolidation or pleural effusion is identified. There is no pneumothorax. The skeletal structures are osteopenic. The bony thorax appears intact. IMPRESSION: 1. Cardiomegaly with prominence of the pulmonary vasculature. Correlate clinically for evidence of mild fluid overload/congestive change. 2. No airspace consolidation or pleural effusion is identified. ACT 112: Negative or not required by law. Electronically signed by: Luis Calderon M.D. 02/05/2023 10:47 AM ECG Additional Comments: Normal sinus rhythm Normal ECG When compared with ECG of 01-MAY-2022 19:43, No significant change was found Code Status & VTE Plan Code Status Full code VTE Prophylaxis Plan VTE Prophylaxis will be ordered: Yes Supervising Physician Co-Signing Physician Notes Patient seen and examined, chart reviewed, case discussed with Allan Weinstein PA-C and I agree with the assessment and plan as above except as otherwise noted Labs and images reviewed Lo is a 57-year-old female with a BMI 64.9 on Mounjaro, sleep apnea, hypo thyroidism, tobacco use, suspected COPD without formal PFTs or regular inhaler use, hyperlipidemia, paroxysmal A-fib, CAD, type II DM, heart failure with preserved ejection fraction on PRN Lasix with CXR showing mild fluid overload who presents to the ER with 3 days of cough, fatigue, weakness, and hypoxia. She was found to be flu a positive in addition to being mild volume overloaded on exam. She has history of tobacco use but no wheezing and no daily inhalers and PFTs prior to her valve replaced which did not show evidence of obstructive disease. Lungs are diffusely wheezy, heart rate is regular with systolic murmur. At bedside she reports she feels improved following her nebulizer, but feels more wheezy than she ever has before, is with a cough productive for clear to some slight yellowish sputum, and overall feels weak and very tired. No pain while breathing, does endorse shortness of breath both sitting up and laying flat. Acute hypoxic respiratory failure: flu a positive, mild heart failure with preserved ejection fraction, Flu a positive. Continue Tamiflu. Supportive care. Patient is with diffuse significant wheezing, stridor it is reasonable given history of tobacco use and no PFTs in several years, although reportedly PFTs in 2019 without significant obstruction Daily diuresis with Lasix 80 mg IV, strict I's and O's. Target net 1-2 L output per day Patient has had significant changes in weight since starting Mounjaro so unable to identify true current resting dry weight. Type II DM Basal bolus as noted, goal BSG [id number] Pharmacy consulted due to concurrent steroid use Heart failure with preserved ejection fraction: As noted pAfib: previously followed with [facility] cardiology; 1x 12 second episode on holter, was started on warfain but had heavy bleeding and with low burden and no recurrent has deferred anticoag as noted. Sinus on admit. Continued on MTP. Has had Risks/benefits discussion with cardiology on deferring anticoagulation indefinitely as long as her A-fib burden does not change, and shared decision making she has decided to defer this and is now following with [facility]. No acute change in management, no A-fib/RVR on admission. Agree with assessment and management as [facility] Care Time/CCT Total # of Minutes Spent Total Time Spent with Patient: Total time spent is greater than 50% in coordination of care (as documented) at patient's floor/unit and/or counseling patient: Coding [place] [address] INT INP/OBS CARE 2/55MIN Patient Type Established History Comprehensive Exam Comprehensive Medical Decision Making Moderate Complexity Diagnoses Hypoxia R09.02 Influenza A J10.1 (HFpEF) heart failure with preserved ejection fraction I50.30 Generalized weakness R53.1 Uncontrolled type 2 diabetes mellitus with hyperglycemia, without long-term current use of insulin E11.65 Sleep apnea G47.30 Tobacco use Z72.0 Hypertension I10 PAF (paroxysmal atrial fibrillation) I48.0
[2023-02-05] MEDS ORDERED: GLUCOSE 40% GEL 15 GM TUBE PO PRN (12:32)
[2023-02-05] MEDS ORDERED: GLUCOSE 10 TAB/TUBE PO PRN (12:32)
[2023-02-05] MEDS ORDERED: GLUCAGON FOR INJ 1 MG VIAL SQ PRN (12:32)
[2023-02-05] MEDS ORDERED: PHARMACY GLYCEMIC MGMT CONSULT PRN (12:32)
[2023-02-05] MEDS ORDERED: CARBOHYDRATES FOR HYPOGLYCEMIA PO PRN (12:32)
[2023-02-05] MEDS ORDERED: DEXTROSE 50% 50 ML SYRINGE IV PRN (12:32)
[2023-02-05] MEDS ORDERED: guaiFENesin/CODEINE 100MG/10MG 5ML UDC PO STA ×2 (13:00→23:34)
[2023-02-05] MEDS ORDERED: FUROSEMIDE 40 MG/4 ML VIAL IV ONE (13:09)
[2023-02-05 13:12] LABS: Base Excess VBG 3.3 mEq/L; HCO3 VBG 30 mmol/L; Oxygen Saturation VBG < 60.0 %; PCO2 VBG 55 mmHg (38-50); PO2 VBG 31 mmHg; pH VBG 7.35 (7.36-7.41)
[2023-02-05] MEDS ORDERED: ACETAMINOPHEN 325 MG TAB PO PRN (13:36)
[2023-02-05] MEDS ORDERED: ENOXAPARIN 0.5 MG/KG SQ SCH (14:54)
[2023-02-05] MEDS: INSULIN ASPART PER UNIT CHARGE SC SCH ×2 (15:54→22:36)
[2023-02-05] MEDS ORDERED: ENOXAPARIN 100 MG/1ML SYR SQ SCH (16:00)
[2023-02-05] MEDS ORDERED: LANTUS PER UNIT CHARGE SQ SCH (16:30)
[2023-02-05] MEDS ORDERED: methylPREDNISolone 125 MG/2 ML VIAL IV SCH (17:00)
[2023-02-05] MEDS: methylPREDNISolone 60 MG in SYRINGE 0 ML IV SCH (18:13)
--- NOTE | 2023-02-05 18:59 | Electrocardiogram Report ---
Test Reason : Blood Pressure : / mmHG Vent. Rate : 077 BPM Atrial Rate : 077 BPM P-R Int : 144 ms QRS Dur : 088 ms QT Int : 392 ms P-R-T Axes : 049 -18 081 degrees QTc Int : 443 ms Normal sinus rhythm Normal ECG When compared with ECG of 01-MAY-2022 19:43, No significant change was found Confirmed by Justice Vital [id number] on 02/05/2023 6:59:03 PM Referred By: Confirmed By:Justice Vital
[2023-02-05] MEDS ORDERED: GABAPENTIN 600 MG TAB PO SCH (20:00)
[2023-02-05] MEDS ORDERED: MOUNJARO SC SCH (21:30)
[2023-02-05] MEDS: OSELTAMIVIR PHOSPHATE 75 MG CAP PO SCH (22:36)
[2023-02-05] MEDS: METOPROLOL TARTRATE 25 MG TAB PO SCH (22:36)
[2023-02-06] MEDS ORDERED: ALBUT/IPRATROP 3MG/0.5MG NEB 3 ML VIAL NEB PRN (00:20)
[2023-02-06] MEDS: INSULIN ASPART PER UNIT CHARGE SC SCH ×3 (00:56→09:28)
[2023-02-06 07:30] LABS: Basophils # (auto) 0.01 K/uL (0.00-0.20); Basophils % (auto) 0.2 %; Hematocrit (blood only) 45.7 % (37.0-47.0); Hemoglobin 15.3 g/dl (12.0-16.0); Immature Granulocytes # (auto) 0.01 K/uL (0.01-0.20); Immature Granulocytes % (auto) 0.2 %; Lymphocytes # (auto) 0.51 K/uL (1.20-3.40); Lymphocytes % (auto) 10.1 %; Mean Corpuscular Hemoglobin 28.8 pg (25.0-34.0); Mean Corpuscular Hgb Conc 33.5 g/dL (32.0-36.0); Mean Corpuscular Volume 85.9 fL (80.0-100.0); Mean Platelet Volume 9.2 fL (9.4-12.4); Monocytes # (auto) 0.35 K/uL (0.11-0.59); Monocytes % (auto) 6.9 %; Neutrophils # (auto) 4.18 K/uL (1.40-6.50); Neutrophils % (auto) 82.6 %; Platelet Count 200 K/uL (130-400); RDW Coefficient of Variation 15.7 % (11.5-14.5); RDW Standard Deviation 49.6 fL (36.4-46.3); Red Blood Count 5.32 M/uL (4.20-5.40); White Blood Count 5.06 K/ul (4.8-10.8)
[2023-02-06 07:45] LABS: Albumin Level 3.8 gm/dl (3.4-5.0); Bilirubin,Total 0.5 mg/dl (0.2-1.0); Calcium 9.3 mg/dl (8.6-10.3); Magnesium 1.9 mg/dl (1.7-2.4); Potassium 3.8 mmol/L (3.5-5.1)
[2023-02-06 07:51] LABS: Albumin Globulin Ratio 1.2 (0.9-2); BUN Creatinine Ratio 25.8 (10-20); Creatinine Clr Calc Pharmacy 117.3 ml/min; Est GFR (African American) 82.2 ml/min; Est GFR (Non-African American) 70.9 ml/min; Globulin 3.1 gm/dl (2.5-4.0); Total Protein 6.9 gm/dl (6.0-8.3)
[2023-02-06] MEDS ORDERED: SODIUM CHLORIDE 0.65% NA SOLN 45 ML (OCEAN) PRN (07:57)
[2023-02-06] MEDS: OSELTAMIVIR PHOSPHATE 75 MG CAP PO SCH (08:09)
[2023-02-06] MEDS: METOPROLOL TARTRATE 25 MG TAB PO SCH (08:09)
[2023-02-06] MEDS: methylPREDNISolone 60 MG in SYRINGE 0 ML IV SCH (08:09)
[2023-02-06 08:55] LABS: INR 0.9 (0.9-1.1); Prothrombin Time 10.3 Seconds (9.0-12.0)
[2023-02-06] MEDS ORDERED: ATORVASTATIN 40 MG TAB PO SCH (09:00)
[2023-02-06] MEDS ORDERED: buPROPion XL 150 MG TABCR PO SCH (09:00)
[2023-02-06] MEDS ORDERED: LANTUS PER UNIT CHARGE SC ONE (09:00)
[2023-02-06 09:12] LABS: Estimated Average Glucose 166 mg/dl; Hemoglobin A1C 7.4 % (4.5-5.6)
--- NOTE | 2023-02-06 18:41 | Discharge Summary ---
Date of Service February 06, 2023 Admission HPI Per Admitting Provider Lo is an [57] year old female with a PMH significant for morbid obesity, current tobacco abuse, PAF not on anticoagulation, anxiety, HFpEF, DMII, CAD, and previous mitral valve replacement who presented to the [facility] on 02/05 with a 3 day history of cough and generalized weakness. She was noted to be hypoxic at 86% on RA on ED arrival but otherwise stable. Labs were significant for being influenza A positive, Covid 19/Influenza B/RSV negative, and an AST of 54. Chest xray was read as 1. Cardiomegaly with prominence of the pulmonary vasculature. Correlate clinically for evidence of mild fluid overload/congestive change. 2. No airspace consolidation or pleural effusion is identified.. Prior to admission the patient was given a dose of Tamiflu, a duoneb treatment, and 125 mg IV Solu-Medrol. At the time of the exam the patient was sitting in bed in no acute distress with her sitting bedside. She states that she started to develop a non- productive cough, wheezing, DIAMOND, and generalized weakness on 02/02. Symptoms progressed to the point that she was significantly dyspneic and generally weak leading to ED visit. When asked, she states that she has been a one PPD smoker for 20+ years but denies a formal COPD diagnosis. She uses prn lasix for LE swelling but states that she has not had to use this for some time. She does not use home O2 therapy and does use HS CPAP nightly otherwise she is unable to sleep. Regarding her hx of PAF, she has only had one, 12 second episode on previous holter monitoring. She was on Coumadin in the past but this was stopped due to serious vaginal bleeding. She currently feels well at rest but is getting significantly SOB with exertion, which is not her baseline. She confirms that her DIAMOND started with her other respiratory symptoms on 02/02. She is a full code and would want her to make medical decisions for her if she cannot make decisions herself. She would like to continue Tamiflu at this time. Principal Diagnosis Acute influenza A with hypoxia Discharge Exam PHYSICAL EXAMINATION Last 24h vital signs reviewed, see documentation in flowsheet General: comfortable appearing, no distress, sitting up in chair dressed in street clothes HEENT: Normocephalic, atraumatic, pupils round and equal, sclerae anicteric, no conjunctival injection, moist mucus membranes Lungs: Normal respiratory effort. slight scattered coarse sounds and crackles posteriorly very slight scattered expiratory wheeze. very good air movement throughout Heart: Regular rate and rhythm, no murmurs. No JVD Abdomen: Soft, nontender, nondistended. Bowel sounds present. Extremities: Warm, dry, well-perfused. mild lower extremity edema. Neuro: Alert and oriented x 4, face symmetric, moves 4 extremities well Psych: Normal affect and behavior Discharge Data Allergies Allergy/AdvReac Type Severity Reaction Status Date / Time red dye Allergy Severe Hives Verified 12/28/22 13:53 Consultations 02/05/23 12:16 ED Decision to Admit Stat Ordered Studies Chest X-Ray 02/05/23 10:28 TWO VIEW CHEST CLINICAL HISTORY: Dyspnea. FINDINGS: PA and lateral chest radiographs are compared to study dated 05/01/2022. Correlation is made with chest CT dated 09/22/2019. The patient is status post midline sternotomy and cardiac valve surgery. The heart is enlarged. There is prominence of the pulmonary vasculature. No airspace consolidation or pleural effusion is identified. There is no pneumothorax. The skeletal structures are osteopenic. The bony thorax appears intact. IMPRESSION: 1. Cardiomegaly with prominence of the pulmonary vasculature. Correlate clinically for evidence of mild fluid overload/congestive change. 2. No airspace consolidation or pleural effusion is identified. ACT 112: Negative or not required by law. Electronically signed by: Luis Calderon M.D. 02/05/2023 10:47 AM 02/06/23 02/06/23 02/06/23 Range/Units 08:16 07:54 06:59 WBC 5.06 (4.8-10.8) K/ul RBC 5.32 (4.20-5.40) M/uL Hgb 15.3 (12.0-16.0) g/dl Hct 45.7 (37.0-47.0) % MCV 85.9 (80.0-100.0) fL MCH 28.8 (25.0-34.0) pg MCHC 33.5 (32.0-36.0) g/dL RDW Std Deviation 49.6 H (36.4-46.3) fL RDW Coeff of Michael 15.7 H (11.5-14.5) % Plt Count 200 (130-400) K/uL MPV 9.2 L (9.4-12.4) fL Immature Gran % (Auto) 0.2 % Neut % (Auto) 82.6 % Lymph % (Auto) 10.1 % [place] % (Auto) 6.9 % Eos % (Auto) 0.0 % Baso % (Auto) 0.2 % Neut # (Auto) 4.18 (1.40-6.50) K/uL Lymph # (Auto) 0.51 L (1.20-3.40) K/uL [place] # (Auto) 0.35 (0.11-0.59) K/uL Eos # (Auto) 0.00 (0.00-0.50) K/uL Baso # (Auto) 0.01 (0.00-0.20) K/uL Immature Gran # (Auto) 0.01 (0.01-0.20) K/uL PT 10.3 Cancelled INR 0.9 Cancelled Sodium 138 (136-145) mmol/L Potassium 3.8 (3.5-5.1) mmol/L Chloride 103 (98-107) mmol/L Carbon Dioxide 25 (21-32) mmol/L Anion Gap 10 (3-11) BUN 23 (6-23) mg/dl Creatinine 0.89 (0.6-1.2) mg/dl Est Cr Clr Drug Dosing 117.3 ml/min Est GFR ( Amer) 82.2 ml/min Est GFR (Non-Af Amer) 70.9 ml/min BUN/Creatinine Ratio 25.8 H (10-20) Glucose 156 H (70-99(Fasting)) mg/dl POC Glucose 165 H (70-99) mg/dl Estimat Average Glucose 166 mg/dl Hemoglobin A1c 7.4 H (4.5-5.6) % Calcium 9.3 (8.6-10.3) mg/dl Magnesium 1.9 (1.7-2.4) mg/dl Total Bilirubin 0.5 (0.2-1.0) mg/dl AST 43 H (13-39) U/L ALT 31 (7-52) U/L Alkaline Phosphatase 92 (34-104) U/L Total Protein 6.9 (6.0-8.3) gm/dl Albumin 3.8 (3.4-5.0) gm/dl Globulin 3.1 (2.5-4.0) gm/dl Albumin/Globulin Ratio 1.2 (0.9-2) 02/06/23 02/06/23 02/05/23 Range/Units 04:12 00:07 22:26 WBC (4.8-10.8) K/ul RBC (4.20-5.40) M/uL Hgb (12.0-16.0) g/dl Hct (37.0-47.0) % MCV (80.0-100.0) fL MCH (25.0-34.0) pg MCHC (32.0-36.0) g/dL RDW Std Deviation (36.4-46.3) fL RDW Coeff of Michael (11.5-14.5) % Plt Count (130-400) K/uL MPV (9.4-12.4) fL Immature Gran % (Auto) % Neut % (Auto) % Lymph % (Auto) % [place] % (Auto) % Eos % (Auto) % Baso % (Auto) % Neut # (Auto) (1.40-6.50) K/uL Lymph # (Auto) (1.20-3.40) K/uL [place] # (Auto) (0.11-0.59) K/uL Eos # (Auto) (0.00-0.50) K/uL Baso # (Auto) (0.00-0.20) K/uL Immature Gran # (Auto) (0.01-0.20) K/uL PT INR Sodium (136-145) mmol/L Potassium (3.5-5.1) mmol/L Chloride (98-107) mmol/L Carbon Dioxide (21-32) mmol/L Anion Gap (3-11) BUN (6-23) mg/dl Creatinine (0.6-1.2) mg/dl Est Cr Clr Drug Dosing ml/min Est GFR ( Amer) ml/min Est GFR (Non-Af Amer) ml/min BUN/Creatinine Ratio (10-20) Glucose (70-99(Fasting)) mg/dl POC Glucose 167 H 165 H 214 H (70-99) mg/dl Estimat Average Glucose mg/dl Hemoglobin A1c (4.5-5.6) % Calcium (8.6-10.3) mg/dl Magnesium (1.7-2.4) mg/dl Total Bilirubin (0.2-1.0) mg/dl AST (13-39) U/L ALT (7-52) U/L Alkaline Phosphatase (34-104) U/L Total Protein (6.0-8.3) gm/dl Albumin (3.4-5.0) gm/dl Globulin (2.5-4.0) gm/dl Albumin/Globulin Ratio (0.9-2) Hospital Course (1) Hypoxia: presented with acute influenza A and mild hypoxia, some wheezing suggestive of bronchospasm or potentially mild volume overload. Treated with Tamiflu, steroids, bronchodilators, dose of intravenous Lasix, and significantly improved. Her hypoxia resolved overnight and she was satting in the mid 90s on room air and her dyspnea was much improved -While she is an [id number], she had negative PFT's approximately 2 years ago during preoperative testing -No leukocytosis or focal consolidation on chest xray to suggest bacterial pneumonia at this time -Low suspicion for PE, no chest pain or symptoms of DVT and hypoxia resolved with the above treatment -CXR does show Cardiomegaly with prominence of pulmonary vasculature, will add on BNP for further evaluation --> BNP was low though can be falsely low in obesity discharge medications: Continue the albuterol inhaler she has at home as needed, short course of oral prednisone, Tamiflu 5-day course (2) Influenza A: (3) (HFpEF) heart failure with preserved ejection fraction: suspect this was not a heart failure exacerbation, although cannot rule out some component of pulmonary edema causing wheezing and hypoxia that resolved with dose of intravenous Lasix - resume home Lasix 80 mg p.o. as needed for increased edema, resumed metoprolol (4) Generalized weakness: improved and resolved, independent for discharge (5) Uncontrolled type 2 diabetes mellitus with hyperglycemia, without long-term current use of insulin: resumed Mounjaro on discharge, she reports she just had her dose increased she will monitor her blood sugar and in case she develops significant steroid- induced hyperglycemia she will call her primary care doctor I think this is unlikely since she has not been significantly elevated despite IV Solu-Medrol on admission hemoglobin A1c was 7.4% she will follow-up in primary care (6) Sleep apnea: -HS CPAP ordered (7) Tobacco use: -Continue to encourage smoking cessation, patient is motivated and currently trying -Will continue Wellbutrin -Patient declined need for nicotine patches/gum at this time encouraged cessation efforts (8) Hypertension: -Stable -Continue metoprolol (9) PAF (paroxysmal atrial fibrillation): -Currently in NSR -Not on anticoagulation as she has had infrequent episodes and previous history of severe bleeding on Warfarin -Continue metoprolol per Dr. Parrish's note: pAfib: previously followed with [facility]; 1x 12 second episode on holter, was started on warfain but had heavy bleeding and with low burden and no recurrent has deferred anticoag as noted. Sinus on admit. Continued on MTP. Has had Risks/benefits discussion with cardiology on deferring anticoagulation indefinitely as long as her A-fib burden does not change, and shared decision making she has decided to defer this and is now following with [facility] cardiology. No acute change in management, no A-fib/RVR on admission. Total Time Total Time Spent Total Time Spent (In Minutes): I spent 25 minutes on coordination of care for discharge Discharge Plan Discharge Items Patient Disposition: Home - Self-Care Reason For Visit: HYPOXIA, INFLUENZA A, GENERALIZED WEAKNESS Discharge Diagnosis: Influenza A Condition on Discharge: Good Activity: Resume your previous activity Non-emergency contact: Primary Care Provider Call non-emergency contact if: you have any medication questions and your symptoms worsen Follow-up/Referrals: Gisella Slaughter MD [Primary Care Provider] - 02/14/23 11:00 am Diet: Carb Consistent or DM2 Addtl Attending Provider Instructions: You were treated for influenza A and low oxygen level. This has improved a lot. -tamiflu (oseltamivir) - complete the 5-day course -prednisone - to help with bronchospasm/wheezing. this will make your blood sugar go up temporarily. Call your doctor if you are running in the 300s, especially >350. - it can cause fluid retention, take a dose of your diuretic if you have increased leg swelling -use your albuterol inhaler as needed for wheezing/shortness of breath -it is okay to take acetaminophen/tylenol as needed for pain or fever Return to the ED if you have worsening shortness of breath or low oxygen <90% Pending Studies at Discharge: No Stand-Alone Forms: My [facility], Smoking Cessation Medications and DC Order Prescriptions: New oseltamivir [Tamiflu] 75 mg Capsule 75 mg PO BID Qty: 8 0RF prednisone 20 mg tablet 20 mg PO DAILY Qty: 4 0RF Rx Instructions: start on morning of 02/07 Continued tirzepatide 5 mg/0.5 mL pen injector See Rx Instructions .ROUTE .COMPLEX Qty: 2 0RF Dose Instruction: INJECT 2.5MG (0.5ML) SUBCUTANEOUSLY ONCE WEEKLY Rx Instructions: INJECT 5MG (0.5ML) SUBCUTANEOUSLY ONCE WEEKLY bupropion HCl 150 mg tablet extended release 24 hr 150 mg PO QAM Qty: 30 2RF atorvastatin [Lipitor] 40 mg tablet 40 mg PO DAILY Qty: 90 3RF metoprolol tartrate 25 mg tablet 25 mg PO BID Qty: 180 3RF gabapentin 600 mg tablet 600 mg PO HS levocetirizine [Xyzal] PO QPM melatonin PO QPM (DME) blood-glucose meter [OneTouch Verio Flex meter] Misc See Rx Instructions .Route Qty: 1 0RF Rx Instructions: As directed (DME) OneTouch Verio test strips Strip See Rx Instructions .Route Qty: 100 3RF Rx Instructions: test twice daily As directed (DME) lancing device with lancets [Cloud LendingTouch Delica Plus Lanc Dev] Kit See Rx Instructions .Route Qty: 100 3RF Rx Instructions: test twice daily As directed cholecalciferol (vitamin D3) 50 mcg (2,000 unit) capsule 50 mcg PO DAILY Qty: 30 0RF buspirone 10 mg tablet 5 - 10 mg PO TID PRN (Reason: anxiety) Qty: 60 1RF Saccharomyces boulardii [Probiotic (S.boulardii)] 250 mg capsule 250 mg PO DAILY clindamycin phos-skin clnsr 19 1 % Kit 1 ea TOPICAL UD PRN (Reason: Other) guaifenesin [Mucinex] 600 mg Tablet Extended Release 12hr 1,200 mg PO Q12H furosemide 80 mg tablet 80 mg PO DAILY PRN (Reason: leg swelling) potassium chloride 10 mEq tablet,ER particles/crystals 20 meq PO QAM PRN (Reason: diuretic use) Discharge Orders: Discharge Order (Routine); Ordered 02/06/23 Ordered By: Dacia Desir/Other Patient Handouts: Diabetes: Meal Planning, Type 2 Diabetes Admission Data Admit Date/Time: 02/05/23 12:31 Attending Provider: Dacia Morse Admit Provider: Kenan Parrish Primary Care Provider: Gisella Slaughter Other Providers: Kenan Parrish Other Interventions: Discharge Summary Assessment (RN) Last Done: 02/06/23 11:55 Coding Level of Care Code 83521 IN/OBS DISCH 30 MIN/LESS Diagnoses Hypoxia R09.02 Influenza A J10.1 (HFpEF) heart failure with preserved ejection fraction I50.30 Generalized weakness R53.1 Uncontrolled type 2 diabetes mellitus with hyperglycemia, without long-term current use of insulin E11.65 Sleep apnea G47.30 Tobacco use Z72.0 Hypertension I10 PAF (paroxysmal atrial fibrillation) I48.0
--- NOTE | 2023-02-12 07:43 | Coding Query ---
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 Please assist us with the question(s) below: Coding Question(s): The diagnosis below was documented in the H&P by the supervising physician, then subsequently fell off all further documentation. Please indicate if it is still a possible diagnosis or ruled out. Physician's Response(s): ACUTE HYPOXIC RESPIRATORY FAILURE - (documented on the H&P by the supervising physician) ( ) Diagnosed and POA ( ) Diagnosed and not POA ( ) Ruled out ( ) Other (please specify) See addendum to discharge summary AC phelan
== END 2023-02-06 12:15 | disposition home or self-care (01) | DRG 193 ==
LOC: ED 09:53 → SUATTDRO 12:31 → EDINP 12:31 → 2W 21:33

== ENCOUNTER 2023-10-18 13:12 | Inpatient (IN) ==
[~2023-10-18 13:12] MED LIST changes: -CEPH500C PO; +KETOROLAC TROMETHAMINE 15 MG/ML VIAL IV PRN; -OXYC-57 PO
--- NOTE | 2023-10-18 13:18 | ED Triage Note ---
Date of Service October 18, 2023 Provider in Triage Author: Collins Aguilar History of Present Illness This patient was briefly evaluated while in triage. An abbreviated physical exam was performed. This patient is a 57-year-old Female who presents to the ED for evaluation had colonoscopy last week "they saw diverticulitis" seen here 2 days ago for abdominal pain and rectal pain - "they told me I was constipated and to take Advil" lower pelvic pain, "it feels like contractions" continued from 2 days ago pain with voiding, unable to eat/drink using stool softeners-only having liquid BMs thinks she has diverticulitis Physical Exam GENERAL: Morbidly obese 57 yof seated in a wheelchair in obvious distress due to pain CARDIOVASCULAR: RRR RESPIRATORY: CTA ABDOMEN: BS x 4. Nontender to palpation. Unable to examine perineal/rectal area in triage. Initial orders for labs and / or imaging were placed and patient was placed in the waiting area until a bed is available. Please see further documentation for the full ED course.
[2023-10-18] MEDS: SODIUM CHLORIDE 0.9% 1,000 ML IV SCH (13:55)
[2023-10-18] MEDS: ONDANSETRON INJ 2 MG/ML 2 ML VIAL IV STA (13:56)
[2023-10-18] MEDS: MoRPHine SULFATE 4 MG/ML 1 ML CARP\\VIAL IV STA (13:56)
[2023-10-18 14:35] LABS: Basophils # (auto) 0.06 K/uL (0.00-0.20); Basophils % (auto) 0.5 %; Eosinophils # (auto) 0.09 K/uL (0.00-0.50); Eosinophils % (auto) 0.7 %; Hematocrit (blood only) 46.2 % (37.0-47.0); Hemoglobin 15.4 g/dl (12.0-16.0); Immature Granulocytes # (auto) 0.07 K/uL (0.01-0.20); Immature Granulocytes % (auto) 0.5 %; Lymphocytes # (auto) 1.35 K/uL (1.20-3.40); Lymphocytes % (auto) 10.5 %; Mean Corpuscular Hemoglobin 29.8 pg (25.0-34.0); Mean Corpuscular Hgb Conc 33.3 g/dL (32.0-36.0); Mean Corpuscular Volume 89.4 fL (80.0-100.0); Mean Platelet Volume 9.2 fL (9.4-12.4); Monocytes # (auto) 0.76 K/uL (0.11-0.59); Monocytes % (auto) 5.9 %; Neutrophils # (auto) 10.47 K/uL (1.40-6.50); Neutrophils % (auto) 81.9 %; Platelet Count 259 K/uL (130-400); RDW Coefficient of Variation 14.7 % (11.5-14.5); RDW Standard Deviation 47.9 fL (36.4-46.3); Red Blood Count 5.17 M/uL (4.20-5.40)
[2023-10-18 14:49] LABS: Alanine Aminotransferase 18 U/L (7-52); Albumin Globulin Ratio 1.3 (0.9-2); Alkaline Phosphatase 108 U/L (34-104); Anion Gap 12 (3-11); Aspartate Aminotransferase 13 U/L (13-39); BUN Creatinine Ratio 18.1 (10-20); Blood Urea Nitrogen 15 mg/dl (6-23); Calcium 10.1 mg/dl (8.6-10.3); Carbon Dioxide 23 mmol/L (21-32); Chloride 104 mmol/L (98-107); Est GFR (African American) 89.5 ml/min; Est GFR (Non-African American) 77.2 ml/min; Globulin 3.2 gm/dl (2.5-4.0); Glucose 129 mg/dl (70-99(Fasting)); Lipase 25 U/L (11-82); Potassium 3.9 mmol/L (3.5-5.1); Sodium 139 mmol/L (136-145); Total Protein 7.2 gm/dl (6.0-8.3)
[2023-10-18] MEDS: HYDROmorphone INJ 0.5 MG/0.5 ML SYR IV STA (14:52)
--- NOTE | 2023-10-18 14:52 | Emergency Department Note ---
Impression & Plan Lower abdominal pain, Proctitis, UTI (urinary tract infection), Constipation, Leukocytosis ED Provider Note NAME: DIXIE SIERRA AGE: 57 SEX: F : 1965 ARRIVES VIA: Walk-In INFORMANT: [Patient] ED PROVIDER(S): [Luis Hicks MD] CHIEF COMPLAINT: Pelvic pain HISTORY OF PRESENT ILLNESS: The patient is a 57-year-old female who states she has had 6 days of lower pelvic pain. The pain comes in waves and seems quite crampy. She has not been having good bowel movements so she did start taking Dulcolax as well as MiraLAX. She even tried an enema which was unsuccessful. Patient was seen in this ED 2 days ago, she was felt primarily to be constipated. She states though that things are worsening and she cannot tolerate the discomfort. She presents back for reevaluation. She has had some nausea, no vomiting, there has been no fever, no cough or respiratory complaints. Patient did have a colonoscopy on the , 8 days ago, she had a rectal polyp that was resected. Some diverticuli were seen. Some small internal hemorrhoids were seen. PMHx/PSHx/Social Hx: See Below PHYSICAL EXAM: GENERAL: Patient is in mild distress from pain. HEENT: No acute trauma, normocephalic atraumatic, mucous membranes moist, no nasal congestion. NECK: No stridor, no adenopathy, no meningismus, trachea is midline. LUNGS: Clear to auscultation bilaterally, no wheeze, no rhonchi, breath sounds equal. HEART: Without murmurs gallops or rubs, regular rate and rhythm. ABDOMEN: Soft, quite obese, no peritonitis. EXTREMITIES: No cyanosis, full range of motion of all the joints without pain or difficulty. Mild bilateral pedal edema. NEUROLOGIC: Oriented x 3, no acute motor or sensory deficits, no focal weakness. SKIN: No jaundice, no diaphoresis. DIFFERENTIAL DIAGNOSIS: Constipation, diverticulitis, bowel perforation, UTI, among others. EMERGENCY DEPARTMENT PROCEDURES: MEDICAL DECISION MAKING: There is a mild leukocytosis, this could be consistent with her pain or infection. There is a normal hemoglobin and platelet count. No renal failure or significant electrolyte abnormality. No concerning liver enzyme elevation. No evidence for pancreatitis. Urinalysis does show findings of infection, culture is pending. Abdominal and pelvis CT shows proctitis with constipation. No acute surgical process by CT imaging. On exam, the patient was uncomfortable and complaining of lower abdominal pain/cramping. The patient was given IV saline, IV Zofran, IV morphine. She received IV Dilaudid for additional pain control, she was given IV ceftriaxone for her UTI. I did order for a milk and molasses enema, hopefully, this will help promote a bowel movement and relieve some of her discomfort. The patient's presentation is explainable by her constipation, proctitis and UTI. All of these findings have led to her discomfort. This is her second ED visit in a few days. She is failing outpatient management and will require an inpatient stay. I did speak with the patient, I spoke with case management. The on-call hospitalist was consulted. Prior/Outside records/notes reviewed: ED visit note from 2 days ago describing her presentation, workup and plan moving forward. Imaging/x-ray results per my interpretation: Chronic Medical/Social conditions affecting care: Status post colonoscopy around 8 days ago Care/Management discussed with: Case management, the on-call hospitalist. Level of care consideration(s): After review of the information above and other included data: --I believe the patient requires escalation of care to admission DISPOSITION: Admission Past Med/Surg History Problem List (Updated 10/18/23 @ 19:09 by Luis Hicks MD) Leukocytosis (Acute) Constipation (Acute) UTI (urinary tract infection) (Acute) Proctitis (Acute) Lower abdominal pain (Acute) Abdominal pain (Acute) Pain, rectal (Acute) Sebaceous cyst Urgency incontinence Recurrent UTI UTI symptoms Cigarette nicotine dependence Type 2 diabetes mellitus with peripheral neuropathy Type 2 diabetes mellitus with morbid obesity Generalized anxiety disorder with panic attacks Chronic edema Chronic venous insufficiency (HFpEF) heart failure with preserved ejection fraction Influenza A Morbid obesity Uncontrolled type 2 diabetes mellitus with hyperglycemia, without long-term current use of insulin Tobacco use Panic attacks Healthcare maintenance Osteoarthritis of left knee Osteoarthritis of right knee PAF (paroxysmal atrial fibrillation) CAD (coronary artery disease) Mitral valve disorder SEVERE REGURGITATION (REASON FOR ECHO) Borderline high cholesterol Carpal tunnel syndrome, left Colon cancer screening Hypothyroidism Hypertension Sleep apnea cpap Obesity Medical History CAD (coronary artery disease) GERD (gastroesophageal reflux disease) (HFpEF) heart failure with preserved ejection fraction Osteoarthritis of knees, bilateral Hx of influenza Chronic venous insufficiency Hypertension Generalized anxiety disorder Hypothyroidism History of panic attacks History of atrial fibrillation pt. reports only while in [place] after [place] Sleep apnea cpap Type 2 diabetes mellitus with morbid obesity pt. denies, states a1c is "creeping" up Frequent UTI Chronic edema Fatty liver Umbilical hernia Surgical History History of laparoscopic appendectomy History of carpal tunnel surgery of left wrist no surgery, resolved on own Hx of mitral valve repair (2019) @ [facility], follows with [facility] Hx of cardiac cath (2019) [facility] @ [facility], no stents History of colonoscopy History of section Difficult airway for intubation "extremely small airway use only a child sized"; issue arouse during c- section in 2003 @ [facility] when received general anesthesia History of bilateral tubal ligation History of tooth extraction History of wisdom tooth extraction History of tonsillectomy and adenoidectomy History of myringotomy Family History Mother Family history of reaction to anesthesia "extremely small airway and sleep apnea" Denies family history of Ovarian cancer Prostate cancer Myocardial infarction Breast cancer Colorectal cancer Social History Smoking Status: Never smoker Tobacco Type: Cigarettes Cigarettes Per Day: 1/2 ppd (advised); Second Hand Exposure: No; Do You Dip or Chew Tobacco: No; Hx Alcohol Use: Yes Alcohol type: wine and hard liquor Hx Substance Use: No Preferred Language: [place] Communication Ability: Effective Client Liaison Required: No Beliefs That Will Affect Care: None marital status: Current Living Situation: Spouse Current Living Situation Comment: Lives with and son current occupational status: employed 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 Feels Safe at Home: Yes Childhood Exposure to Second-Hand Smoke: No Dental Care, Regularly: Yes Physical Activity Frequency: Does not Exercise Seatbelt Use: never Sunscreen Use: Yes Assistive Devices: CPAP and Glasses Allergies Allergies Allergy/AdvReac Type Severity Reaction Status Date / Time red dye Allergy Mild Hives Verified 10/18/23 17:54 Home Meds Home Medications Medication Instructions Recorded Confirmed guaifenesin 600 mg tablet, 1,200 mg PO Q12H 02/17/18 10/18/23 extended release 12 hr (Mucinex) Saccharomyces boulardii 250 mg 250 mg PO QAM 07/19/22 10/18/23 capsule (Probiotic (S.boulardii)) cholecalciferol (vitamin D3) 50 50,000 unit PO WK 02/21/23 10/18/23 mcg (2,000 unit) capsule gabapentin 600 mg tablet See Rx Instructions .Route .COMPLEX 03/20/23 10/18/23 nutrafol 4 tabs PO QAM 06/18/23 10/18/23 atorvastatin 40 mg tablet (Lipitor) 40 mg PO QPM 10/01/23 10/18/23 levocetirizine 5 mg tablet (Xyzal) 5 mg PO DAILY PRN allergies 10/01/23 10/18/23 naltrexone 50 mg tablet 25 mg PO BID 10/01/23 10/18/23 nystatin 100,000 unit/gram topical 1 applic topical BID PRN yeast 10/01/23 10/18/23 ointment omeprazole 20 mg capsule,delayed 20 mg PO QAM 10/01/23 10/18/23 release solifenacin 5 mg tablet 5 - 10 mg PO DAILY 10/01/23 10/18/23 vitamin B12 0.5 mg-folic acid 1 mg 1 tab PO QAM 10/01/23 10/18/23 tablet tirzepatide 7.5 mg/0.5 mL 7.5 mg subcut WK 10/16/23 10/18/23 subcutaneous pen injector cranberry fruit concentrate 250 mg 250 mg PO QAM 10/18/23 10/18/23 chewable tablet (Azo Cranberry) Previous Rx's Medication Instructions Recorded blood sugar diagnostic (Advanced TelemetryTouch #100 ea 12/28/22 Verio test strips) blood-glucose meter (Advanced TelemetryTouch #1 ea 12/28/22 Verio Flex Meter) lancing device with lancets kit #100 ea 12/28/22 (OneTouch Delica Plus Lancing Device kit) metoprolol tartrate 25 mg tablet 25 mg PO BID #180 tabs 03/20/23 bupropion HCl 150 mg 24 hr tablet, 150 mg PO QAM #90 tabs 09/11/23 extended release buspirone 10 mg tablet 5 - 10 mg (0.5 - 1 x 10 mg) PO TID 09/26/23 PRN anxiety #60 tabs Results & Data (ED) Vital Signs Vital Signs - 24 hr 10/18/23 13:15 10/18/23 14:09 10/18/23 14:09 Temperature 36.7 C Temperature Source Temporal Artery Scan Pulse Rate 96 H Pulse Rate [Left Brachial] 85 Pulse Rhythm Pulse Rhythm [Left Brachial] Regular Pulse Strength [Left Brachial] Normal Respiratory Rate 18 16 Respiratory Effort / Characteristics Non-Labored Spontaneous Spontaneous Respiratory Depth Normal Normal Respiratory Pattern Regular Blood Pressure 163/80 H Blood Pressure [Left Arm] 127/71 Blood Pressure Mean 107 Blood Pressure Mean [Left Arm] 89 Blood Pressure Position [Left Arm] Lying Pulse Oximetry 99 97 Oxygen Delivery Method Room Air Room Air Sepsis Recent Fever Within 48 Hours No Sepsis New/Unexplained Change in Mental Status No Sepsis Action Taken by Nursing No Action Required 10/18/23 14:27 10/18/23 14:28 10/18/23 16:59 Temperature Temperature Source Pulse Rate 76 76 Pulse Rate [Left Brachial] 79 Pulse Rhythm Regular Pulse Rhythm [Left Brachial] Pulse Strength [Left Brachial] Respiratory Rate 20 22 Respiratory Effort / Characteristics Non-Labored Spontaneous Respiratory Depth Normal Respiratory Pattern Regular Blood Pressure Blood Pressure [Left Arm] 148/79 H Blood Pressure Mean Blood Pressure Mean [Left Arm] 102 Blood Pressure Position [Left Arm] Pulse Oximetry 95 98 Oxygen Delivery Method Room Air Room Air Sepsis Recent Fever Within 48 Hours Sepsis New/Unexplained Change in Mental Status Sepsis Action Taken by Nursing 10/18/23 18:28 Temperature Temperature Source Pulse Rate 85 Pulse Rate [Left Brachial] Pulse Rhythm Pulse Rhythm [Left Brachial] Pulse Strength [Left Brachial] Respiratory Rate Respiratory Effort / Characteristics Respiratory Depth Respiratory Pattern Blood Pressure Blood Pressure [Left Arm] Blood Pressure Mean Blood Pressure Mean [Left Arm] Blood Pressure Position [Left Arm] Pulse Oximetry Oxygen Delivery Method Sepsis Recent Fever Within 48 Hours Sepsis New/Unexplained Change in Mental Status Sepsis Action Taken by [facility] Medications Current Medication List: was personally reviewed by me Laboratory Data Attestation: I reviewed the patient's lab results. 10/18/23 13:56 10/18/23 13:56 Lab Results 10/18/23 10/18/23 Range/Units 13:56 14:58 WBC 12.80 H (4.8-10.8) K/ul RBC 5.17 (4.20-5.40) M/uL Hgb 15.4 (12.0-16.0) g/dl Hct 46.2 (37.0-47.0) % MCV 89.4 (80.0-100.0) fL MCH 29.8 (25.0-34.0) pg MCHC 33.3 (32.0-36.0) g/dL RDW Std Deviation 47.9 H (36.4-46.3) fL RDW Coeff of Michael 14.7 H (11.5-14.5) % Plt Count 259 (130-400) K/uL MPV 9.2 L (9.4-12.4) fL Immature Gran % (Auto) 0.5 % Neut % (Auto) 81.9 % Lymph % (Auto) 10.5 % Fannin % (Auto) 5.9 % Eos % (Auto) 0.7 % Baso % (Auto) 0.5 % Neut # (Auto) 10.47 H (1.40-6.50) K/uL Lymph # (Auto) 1.35 (1.20-3.40) K/uL Fannin # (Auto) 0.76 H (0.11-0.59) K/uL Eos # (Auto) 0.09 (0.00-0.50) K/uL Baso # (Auto) 0.06 (0.00-0.20) K/uL Immature Gran # (Auto) 0.07 (0.01-0.20) K/uL Sodium 139 (136-145) mmol/L Potassium 3.9 (3.5-5.1) mmol/L Chloride 104 (98-107) mmol/L Carbon Dioxide 23 (21-32) mmol/L Anion Gap 12 H (3-11) BUN 15 (6-23) mg/dl Creatinine 0.83 (0.6-1.2) mg/dl Est Cr Clr Drug Dosing Not Reportable Est GFR ( Amer) 89.5 ml/min Est GFR (Non-Af Amer) 77.2 ml/min BUN/Creatinine Ratio 18.1 (10-20) Glucose 129 H (70-99(Fasting)) mg/dl Calcium 10.1 (8.6-10.3) mg/dl Total Bilirubin 1.0 (0.2-1.0) mg/dl AST 13 (13-39) U/L ALT 18 (7-52) U/L Alkaline Phosphatase 108 H (34-104) U/L Total Protein 7.2 (6.0-8.3) gm/dl Albumin 4.0 (3.4-5.0) gm/dl Globulin 3.2 (2.5-4.0) gm/dl Albumin/Globulin Ratio 1.3 (0.9-2) Lipase 25 (11-82) U/L Urine Color Yellow Urine Appearance Cloudy A (Clear) Urine pH 6.5 (4.5-7.5) Ur Specific [place] 1.017 (1.000-1.030) Urine Protein Trace H (Negative) Urine Glucose (UA) Negative (Negative) Urine Ketones Trace H (Negative) Urine Blood Negative (Negative) Urine Nitrite Positive A (Negative) Urine Bilirubin Negative (Negative) Urine Urobilinogen Negative (Negative) Ur Leukocyte Esterase 3+ H (Negative) Urine WBC (Auto) >50 H (0-5) /hpf Urine RBC (Auto) >20 H (0-2) /hpf U Hyaline Cast (Auto) 0-2 (0-2) /lpf U Epithel Cells (Auto) 3-5 H (0-2) /hpf Urine Bacteria (Auto) 4+ H (None Seen) Administered Medications Discontinued Medications Hydromorphone HCl (Hydromorphone Inj 0.5 Mg/0.5 Ml Syr) 0.5 mg IV NOW STA Stop: 10/18/23 14:50 Last Admin: 10/18/23 14:52 Dose: 0.5 mg Documented By: JOHANNA Sodium Chloride (Nss) 1,000 mls @ 999 mls/hr IV .Q1H1M CORY Stop: 10/18/23 14:22 Last Infusion: 10/18/23 16:28 Dose: Infused Documented By: Admin: 10/18/23 13:55 Dose: 999 mls/hr Documented By: LING Ceftriaxone Sodium (Rocephin) 2,000 mg in 50 mls @ 100 mls/hr IV NOW STA Stop: 10/18/23 16:43 Last Infusion: 10/18/23 18:22 Dose: Infused Documented By: Admin: 10/18/23 16:28 Dose: 100 mls/hr Documented By: LEANDRO Ioversol (Optiray 320 125ml) 119 ml IV ONCE ONE Stop: 10/18/23 16:20 Last Admin: 10/18/23 16:19 Dose: 119 ml Documented By: KELLEE Morphine Sulfate (Morphine Sulfate 4 Mg/Ml 1 Ml Carp\\Vial) 4 mg IV NOW STA Stop: 10/18/23 13:21 Last Admin: 10/18/23 13:56 Dose: 4 mg Documented By: LING Ondansetron HCl (Ondansetron Inj 2 Mg/Ml 2 Ml Vial) 4 mg IV NOW STA Stop: 10/18/23 13:21 Last Admin: 10/18/23 13:56 Dose: 4 mg Documented By: LING Imaging Data Radiologist's Impression: Abdomen/Pelvis CT 10/18/23 13:20 CT SCAN OF THE ABDOMEN AND PELVIS WITH IV CONTRAST CLINICAL HISTORY: Perineal pain COMPARISON STUDY: Abdominal CT dated 10/16/2023. TECHNIQUE: Following the IV administration of 120 cc of Optiray 320, CT scan of the abdomen and pelvis is performed from the lung bases to the proximal femora. Images are reviewed in the axial, sagittal, and coronal planes. IV contrast was administered without complication. A dose lowering technique was utilized adhering to the principles of ALARA. The examination is degraded by large body habitus, and by streak artifact from the body wall abutting the CT gantry. CT DOSE: 1760.15 mGy.cm FINDINGS: Lung bases: The patient is status post midline sternotomy and mitral valve surgery. The heart is normal in size and without pericardial effusion. The lung bases are clear noting mild dependent atelectasis. Liver: The contrast-enhanced liver is enlarged, measuring 20.7 cm in length. Attenuation is diffusely diminished indicating steatosis. Fatty sparing is seen adjacent to the gallbladder fossa. There is no intrahepatic biliary ductal dilatation. The hepatic veins and portal veins are patent. Gallbladder: Unremarkable. Spleen: The spleen is enlarged measuring 14.2 cm in length. Pancreas: Mildly atrophic and grossly unremarkable.. Adrenal glands: Atrophic. Kidneys: The contrast enhanced kidneys are normal in size and without hydronephrosis. The kidneys enhance symmetrically. Abdominal vasculature: The abdominal aorta is normal in course and caliber noting mild atherosclerotic calcification. Bowel: There is retrosigmoid fecal retention and mild to moderate constipation. No bowel obstruction is seen. The appendix is not identified and reported surgically absent. The rectal wall appears mildly thickened with surrounding infiltration. A duodenal diverticulum is incidentally noted. Peritoneum: There is no intraperitoneal free air or abdominal ascites. There is a large fat-containing umbilical/periumbilical hernia. Lymphadenopathy: None. Pelvic viscera: There is a small focus of gas within the bladder lumen which may be related to instrumentation. The bladder is otherwise normal as imaged. The uterus and adnexa are normal as visualized. Skeletal structures: There is mild lumbosacral spondylosis. No lytic or blastic lesions are seen. IMPRESSION: 1. There is rectosigmoid fecal retention and mild to moderate constipation. 2. The rectal wall appears mildly thickened with faint surrounding infiltration. Correlate clinically for evidence of a nonspecific proctitis. 3. The liver is enlarged and steatotic. 4. Splenomegaly. 5. Additional findings as above. ACT 112: Negative or not required by law. Electronically signed by: Luis Calderon M.D. 10/18/2023 4:34 PM Discharge Plan Visit Data Chief Complaint: Pelvic Pain Stated Complaint: SOB, LOW PAIN ED Provider: Luis Hicks Discharge Problem: Lower abdominal pain, Proctitis, UTI (urinary tract infection), Constipation, Leukocytosis Patient Disposition: Admitted As Inpatient Condition: Fair Forms Stand Alone Forms: [employer] [facility] [employer] Prescriptions Prescriptions: No Action bupropion HCl 150 mg tablet extended release 24 hr 150 mg PO QAM Qty: 90 0RF buspirone 10 mg tablet 5 - 10 mg PO TID PRN (Reason: anxiety) Qty: 60 1RF metoprolol tartrate 25 mg tablet 25 mg PO BID Qty: 180 3RF cholecalciferol (vitamin D3) 50 mcg (2,000 unit) capsule 50,000 unit PO WK Rx Instructions: take once a week. Sunday gabapentin 600 mg tablet See Rx Instructions .ROUTE .COMPLEX Rx Instructions: Take 600mg by mouth 2 hours before bedtime and 300mg by mouth at bedtime (DME) blood-glucose meter [OneTouch Verio Flex meter] [facility] [place] See Rx Instructions .Route Qty: 1 0RF Rx Instructions: As directed (DME) OneTouch Verio test strips Strip See Rx Instructions .Route Qty: 100 3RF Rx Instructions: test twice daily As directed (DME) lancing device with lancets [Bei[employer]i Delica Plus Lanc Dev] Kit See Rx Instructions .Route Qty: 100 3RF Rx Instructions: test twice daily As directed Saccharomyces boulardii [Probiotic (S.boulardii)] 250 mg capsule 250 mg PO QAM nutrafol 4 tabs PO QAM guaifenesin [Mucinex] 600 mg Tablet Extended Release 12hr 1,200 mg PO Q12H vitamin [id number] acid 0.5-1 mg Tablet 1 tab PO QAM levocetirizine [Xyzal] 5 mg Tablet 5 mg PO DAILY PRN (Reason: allergies) atorvastatin [Lipitor] 40 mg tablet 40 mg PO QPM nystatin 100,000 unit/gram ointment 1 applic topical BID PRN (Reason: yeast) naltrexone 50 mg tablet 25 mg PO BID Rx Instructions: take 1/2 tab daily x 2 wks then increase to 1 tab daily omeprazole 20 mg capsule,delayed release(DR/EC) 20 mg PO QAM solifenacin 5 mg tablet 5 - 10 mg PO DAILY tirzepatide 7.5 mg/0.5 mL pen injector 7.5 mg subcut WK Rx Instructions: INJECT 7.5MG (0.5ML) SUBCUTANEOUSLY ONCE WEEKLY. Sun Azo Cranberry 250 mg Tablet,Chewable 250 mg PO QAM Referrals Referrals: Gisella Slaughter MD [Primary Care Provider] - Discharge Problem: UTI (urinary tract infection) Qualifiers: Urinary tract infection type: acute cystitis Hematuria presence: without hematuria Qualified Code(s): N30.00 - Acute cystitis without hematuria Constipation Qualifiers: Constipation type: unspecified constipation type Qualified Code(s): K59.00 - Constipation, unspecified Leukocytosis Qualifiers: Leukocytosis type: unspecified Qualified Code(s): D72.829 - Elevated white blood cell count, unspecified
[2023-10-18 15:48] LABS: Appearance Urine Cloudy (Clear); Bacteria Urine Automated 4+ (None Seen); Bilirubin Urine Negative (Negative); Blood Urine Negative (Negative); Cast Urine Automated 0-2 /lpf (0-2); Color Urine Yellow; Glucose Urine UA Negative (Negative); Ketones Urine Trace (Negative); Leukocyte Esterase Urine 3+ (Negative); Nitrite Urine Positive (Negative); Protein Urine Trace (Negative); RBC Urine Automated >20 /hpf (0-2); Specific Gravity Urine 1.017 (1.000-1.030); Urobilinogen Urine Negative (Negative); WBC Urine Automated >50 /hpf (0-5); pH Urine 6.5 (4.5-7.5)
[2023-10-18] MEDS: OPTIRAY 320 125ml IV ONE (16:19)
[2023-10-18] MEDS: cefTRIAXone SODIUM 2,000 MG/50 ML BAG IV STA (16:28)
--- NOTE | 2023-10-18 16:36 | CT Scan Report ---
CT SCAN OF THE ABDOMEN AND PELVIS WITH IV CONTRAST CLINICAL HISTORY: Perineal pain COMPARISON STUDY: Abdominal CT dated 10/16/2023. TECHNIQUE: Following the IV administration of 120 cc of Optiray 320, CT scan of the abdomen and pelv is is performed from the lung bases to the proximal femora. Images are reviewed in the axial, sagitta l, and coronal planes. IV contrast was administered without complication. A dose lowering technique w as utilized adhering to the principles of ALARA. The examination is degraded by large body habitus, a nd by streak artifact from the body wall abutting the CT gantry. CT DOSE: 1760.15 mGy.cm FINDINGS: Lung bases: The patient is status post midline sternotomy and mitral valve surgery. The heart is norm al in size and without pericardial effusion. The lung bases are clear noting mild dependent atelectas is. Liver: The contrast-enhanced liver is enlarged, measuring 20.7 cm in length. Attenuation is diffusely diminished indicating steatosis. Fatty sparing is seen adjacent to the gallbladder fossa. There is n o intrahepatic biliary ductal dilatation. The hepatic veins and portal veins are patent. Gallbladder: Unremarkable. Spleen: The spleen is enlarged measuring 14.2 cm in length. Pancreas: Mildly atrophic and grossly unremarkable.. Adrenal glands: Atrophic. Kidneys: The contrast enhanced kidneys are normal in size and without hydronephrosis. The kidneys enh ance symmetrically. Abdominal vasculature: The abdominal aorta is normal in course and caliber noting mild atheroscleroti c calcification. Bowel: There is retrosigmoid fecal retention and mild to moderate constipation. No bowel obstruction is seen. The appendix is not identified and reported surgically absent. The rectal wall appears mild ly thickened with surrounding infiltration. A duodenal diverticulum is incidentally noted. Peritoneum: There is no intraperitoneal free air or abdominal ascites. There is a large fat-containin g umbilical/periumbilical hernia. Lymphadenopathy: None. Pelvic viscera: There is a small focus of gas within the bladder lumen which may be related to instru mentation. The bladder is otherwise normal as imaged. The uterus and adnexa are normal as visualized. Skeletal structures: There is mild lumbosacral spondylosis. No lytic or blastic lesions are seen. IMPRESSION: 1. There is rectosigmoid fecal retention and mild to moderate constipation. 2. The rectal wall appears mildly thickened with faint surrounding infiltration. Correlate clinically for evidence of a nonspecific proctitis. 3. The liver is enlarged and steatotic. 4. Splenomegaly. 5. Additional findings as above. ACT 112: Negative or not required by law. Electronically signed by: Luis Calderon M.D. 10/18/2023 4:34 PM
--- NOTE | 2023-10-18 17:14 | Electrocardiogram Report ---
Test Reason : Blood Pressure : */* mmHG Vent. Rate : 78 BPM Atrial Rate : 78 BPM P-R Int : 126 ms QRS Dur : 72 ms QT Int : 386 ms P-R-T Axes : 93 -20 61 degrees QTcB Int : 440 ms Normal sinus rhythm Low voltage QRS Abnormal ECG When compared with ECG of 05-Feb-2023 11:08, No significant change was found Confirmed by Brandon Wesley ([id number]) on 10/18/2023 5:14:26 PM Referred By: REFERRED SELF Confirmed By: Brandon Wesley
--- NOTE | 2023-10-18 19:25 | History & Physical Report ---
Date of Service October 18, 2023 Assessment & Plan (1) Abdominal pain: (2) Constipation: (3) Proctitis: (4) UTI (urinary tract infection): (5) Cigarette nicotine dependence: (6) Type 2 diabetes mellitus with morbid obesity: (7) Generalized anxiety disorder with panic attacks: (8) (HFpEF) heart failure with preserved ejection fraction: (9) Hypertension: (10) Sleep apnea: Plan 57 y/o female with PMH of HTN, HFpEF, chronic venous insufficiency, Paroxysmal Afib, HLD, Obesity, NAFLD, Severe NANI, GERD, tobacco smoking, Anxiety here due to abdominal pain found with constipation/nonspecific proctitis and UTI Abdominal pain Constipation/ Proctitis - Abdominal pain, no mild leukocytosis (12.80), no fever - Abdominal pain worsen with anxiety - Ct abdominal: There is rectosigmoid fecal retention and mild to moderate constipation. The rectal wall appears mildly thickened with faint surrounding infiltration. Correlate clinically for evidence of a nonspecific proctitis. - s/p Milk and Molasses enema with no bowel movement - Miralax TID, milk of magnesia prn - Golytely given - Toradol IV 30 mg once, Toradol PO 15 mg PRN - Tylenol 650mg q4hr - Zofran prn - Avoid opioids UTI - UA: + Leukocyte esterase, + urine bacteria, + urine nitrite, increased wbc - continue Ceftriaxone 2 g IV daily - Pending Urine culture - CBC am DM2 with neuropathy - home Mounjaro hold - continue gabapentin - Novalog SS1 -Hgb A1C am HTN: continue Metoprolol tartare 25 mg BID HFrEF - No signs of acute failure on exam today - continue home meds Paroxysmal AFib - EKG: sinus rhythm - continue metoprolol HLD - continue atorvastatin NANI - CPAP qhs Tobacco use - Nicotine patch ordered Anxiety with panic attacks Ativan prn continue Dispo: Medsurg FEN: NPO for now DVT prophylaxis Lovenox sq daily Full code History of Present Illness Primary Care Provider: Gisella Slaughter MD Lo is a 57 y/o female with PMH of HTN, HFpEF, chronic venous insufficiency, Paroxysmal Afib, HLD, Obesity, NAFLD, Severe NANI, GERD, tobacco smoking, Anxiety that presented to the ED due to 6 days of abdominal/ rectal pain and nausea. She describe the pain as crampy that come in waves. Additionally she refers some dysuria since 3 days ago. She had a similar event 4 days ago that was seen in the ED, at that moment he was found with constipation. She refers last bowel moment was on Sunday last week. She refers had being trying Miralax, Dulcolax and an enema without resolution of symptoms. She had a colonoscopy done on 10/09 that showed diverticulosis and a polyp. Denied decrease appetite, SOB, chest pain, palpitation, hematuria, black stool or hematochezia. ED course: Labs remarkable for mild leukocytosis (12.80), Alkaline phosphatase: 108. UA consistent with positive urine leukocyte esterase, urine nitrate, increased wbc and + bacteria. CT abdomen with IV contrast: There is rectosigmoid fecal retention and mild to moderate constipation. The rectal wall appears mildly thickened with faint surrounding infiltration. Correlate clinically for evidence of a nonspecific proctitis. IV bolus of NSS given. For pain she was given IV morphine 4 mg and Dilaudid 0.5 mg. Milk and molasses enema was administrated without resolution. Ativan 0.5 mg was administrated due to anxiety. IV Ceftriaxone 2g was given as well. Allergies Allergy/AdvReac Type Severity Reaction Status Date / Time red dye Allergy Mild Hives Verified 10/18/23 17:54 Home Medications Medication Instructions Recorded Confirmed Type guaifenesin 600 mg tablet, 1,200 mg PO Q12H 02/17/18 10/18/23 History extended release 12 hr (Mucinex) Saccharomyces boulardii 250 mg 250 mg PO QAM 07/19/22 10/18/23 History capsule (Probiotic (S.boulardii)) blood sugar diagnostic (OneTouch #100 ea 12/28/22 08/02/23 Rx Verio test strips) blood-glucose meter (OneTouch #1 ea 12/28/22 08/02/23 Rx Verio Flex Meter) lancing device with lancets kit #100 ea 12/28/22 08/02/23 Rx (OneTouch Delica Plus Lancing Device kit) cholecalciferol (vitamin D3) 50 50,000 unit PO WK 02/21/23 10/18/23 History mcg (2,000 unit) capsule gabapentin 600 mg tablet See Rx Instructions .Route .COMPLEX 03/20/23 10/18/23 History metoprolol tartrate 25 mg tablet 25 mg PO BID #180 tabs 03/20/23 10/18/23 Rx nutrafol 4 tabs PO QAM 06/18/23 10/18/23 History bupropion HCl 150 mg 24 hr tablet, 150 mg PO QAM #90 tabs 09/11/23 10/18/23 Rx extended release buspirone 10 mg tablet 5 - 10 mg (0.5 - 1 x 10 mg) PO TID 09/26/23 10/18/23 Rx PRN anxiety #60 tabs atorvastatin 40 mg tablet (Lipitor) 40 mg PO QPM 10/01/23 10/18/23 History levocetirizine 5 mg tablet (Xyzal) 5 mg PO DAILY PRN allergies 10/01/23 10/18/23 History naltrexone 50 mg tablet 25 mg PO BID 10/01/23 10/18/23 History nystatin 100,000 unit/gram topical 1 applic topical BID PRN yeast 10/01/23 10/18/23 History ointment omeprazole 20 mg capsule,delayed 20 mg PO QAM 10/01/23 10/18/23 History release solifenacin 5 mg tablet 5 - 10 mg PO DAILY 10/01/23 10/18/23 History vitamin B12 0.5 mg-folic acid 1 mg 1 tab PO QAM 10/01/23 10/18/23 History tablet tirzepatide 7.5 mg/0.5 mL 7.5 mg subcut WK 10/16/23 10/18/23 History subcutaneous pen injector cranberry fruit concentrate 250 mg 250 mg PO QAM 10/18/23 10/18/23 History chewable tablet (Azo Cranberry) cephalexin 500 mg capsule 500 mg PO Q6H 3 days #12 caps 10/19/23 Rx Past Med/Surg History Problem List (Updated 10/18/23 @ 19:09 by Luis Hicks MD) Leukocytosis (Acute) Constipation (Acute) UTI (urinary tract infection) (Acute) Proctitis (Acute) Lower abdominal pain (Acute) Abdominal pain (Acute) Pain, rectal (Acute) Sebaceous cyst Urgency incontinence Recurrent UTI UTI symptoms Cigarette nicotine dependence Type 2 diabetes mellitus with peripheral neuropathy Type 2 diabetes mellitus with morbid obesity Generalized anxiety disorder with panic attacks Chronic edema Chronic venous insufficiency (HFpEF) heart failure with preserved ejection fraction Influenza A Morbid obesity Uncontrolled type 2 diabetes mellitus with hyperglycemia, without long-term current use of insulin Tobacco use Panic attacks Healthcare maintenance Osteoarthritis of left knee Osteoarthritis of right knee PAF (paroxysmal atrial fibrillation) CAD (coronary artery disease) Mitral valve disorder SEVERE REGURGITATION (REASON FOR ECHO) Borderline high cholesterol Carpal tunnel syndrome, left Colon cancer screening Hypothyroidism Hypertension Sleep apnea cpap Obesity Medical History CAD (coronary artery disease) GERD (gastroesophageal reflux disease) (HFpEF) heart failure with preserved ejection fraction Osteoarthritis of knees, bilateral Hx of influenza Chronic venous insufficiency Hypertension Generalized anxiety disorder Hypothyroidism History of panic attacks History of atrial fibrillation pt. reports only while in [place] after [facility] Sleep apnea cpap Type 2 diabetes mellitus with morbid obesity pt. denies, states a1c is "creeping" up Frequent UTI Chronic edema Fatty liver Umbilical hernia Surgical History History of laparoscopic appendectomy History of carpal tunnel surgery of left wrist no surgery, resolved on own Hx of mitral valve repair (2019) @ [place], follows with Carlos Hx of cardiac cath (2019) Trevon @ [facility], no stents History of colonoscopy History of section Difficult airway for intubation "extremely small airway use only a child sized"; issue arouse during c- section in 2003 @ [facility] when received general anesthesia History of bilateral tubal ligation History of tooth extraction History of wisdom tooth extraction History of tonsillectomy and adenoidectomy History of myringotomy Family History Mother Family history of reaction to anesthesia "extremely small airway and sleep apnea" Denies family history of Ovarian cancer Prostate cancer Myocardial infarction Breast cancer Colorectal cancer Social History Smoking Status: Current every day smoker Tobacco Type: Cigarettes Cigarettes Per Day: 1/2 ppd (advised); Second Hand Exposure: Yes; Do You Dip or Chew Tobacco: No; Hx Alcohol Use: No Hx Substance Use: No Preferred Language: Zambian Communication Ability: Effective Laundry Tub Maker Required: No Beliefs That Will Affect Care: None marital status: Current Living Situation: Spouse Current Living Situation Comment: Lives with and son current occupational status: employed 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 Feels Safe at Home: Yes Childhood Exposure to Second-Hand Smoke: No Dental Care, Regularly: Yes Physical Activity Frequency: Does not Exercise Seatbelt Use: never Sunscreen Use: Yes Assistive Devices: None Review of Systems Review of Systems: as per HPI Physical Exam Constitutional: WD/WN, vitals as above ENMT: external ear and nose normal, oropharynx normal Respiratory: normal respiratory effort, lungs clear to auscultation Cardiovascular: RRR, no murmur, no edema Gastrointestinal (Abdomen): Inspection/Auscultation: normal bowel sounds Percussion/Palpation: + abdomen tender (Left lower abdomen) and abdomen soft; no guarding and abdomen not rigid Psychiatric: Orientation: alert and oriented x 3 Mood: + anxious mood Results & Data Results & Data Vital Signs (Past 12 Hours) Vital Signs Temp Pulse Pulse Resp BP BP Pulse Ox 10/18/23 18:28 85 10/18/23 16:59 79 22 148/79 H 98 10/18/23 14:28 76 20 95 10/18/23 14:27 76 10/18/23 14:09 85 16 127/71 97 10/18/23 14:09 10/18/23 13:15 36.7 C 96 H 18 163/80 H 99 O2 Del Method 10/18/23 18:28 10/18/23 16:59 Room Air 10/18/23 14:28 Room Air 10/18/23 14:27 10/18/23 14:09 10/18/23 14:09 Room Air 10/18/23 13:15 Room Air Supervising Physician Co-Signing Physician Notes I personally saw and examined the patient. I verified all jackson points and agree with resident physician Dr Lawrence, with the following exceptions and/or additions: 57 year old female presents to the ER with rectal and lower pelvic pain especially on defecation for 6 days. Recent colonoscopy on with rectal poly resected at that time. O/E in distress from pain, Abdomen with generalized tenderness, HS RRR, no murmurs, Chest CTAB A/P Proctitis - suspect from constipation, milk of molasses enema not successful, recommend acetaminophen and Toradol for pain, avoid opiates to avoid worsening constipation, give Golyteley prep now, consider bentyl for cramping pain. Possible infectious etiology with recent rectal polyp biopsy however this is less likely and ceftriaxone would also cover this (low likelihood therefore will not add on metronidazole) UTI - ceftriaxone, follow up urine culture Resident Activity Tracking Resident Involvement: Resident Care Provided Care Provided: Adult Hospital Medicine (1) Abdominal pain Abdominal location: generalized Qualified Code(s): R10.84 - Generalized abdominal pain (2) Constipation Constipation type: unspecified constipation type Qualified Code(s): K59.00 - Constipation, unspecified (4) UTI (urinary tract infection) Hematuria presence: without hematuria Urinary tract infection type: acute cystitis Qualified Code(s): N30.00 - Acute cystitis without hematuria
[2023-10-18] MEDS: LORazepam 0.5 MG TAB PO STA (19:48)
[2023-10-18] MEDS: ACETAMINOPHEN 1,000 MG/100 ML VIAL IV STA (19:49)
[2023-10-18] MEDS ORDERED: ACETAMINOPHEN 325 MG TAB PO PRN (20:08)
[2023-10-18] MEDS ORDERED: busPIRone 5 MG TAB PO PRN (20:08)
[2023-10-18] MEDS ORDERED: ONDANSETRON INJ 2 MG/ML 2 ML VIAL IV PRN (20:08)
[2023-10-18] MEDS ORDERED: GLUCOSE 10 TAB/TUBE PO PRN (20:08)
[2023-10-18] MEDS ORDERED: NYSTATIN OINT 15 GM TUBE EXT PRN (20:08)
[2023-10-18] MEDS ORDERED: DEXTROSE 50% 50 ML SYRINGE IV PRN (20:08)
[2023-10-18] MEDS ORDERED: GLUCAGON FOR INJ 1 MG VIAL SQ PRN (20:08)
[2023-10-18] MEDS ORDERED: GLUCOSE 40% GEL 15 GM TUBE PO PRN (20:08)
[2023-10-18] MEDS ORDERED: ALUMINUM/MAGNESIUM SUSP 30 ML UDC PO PRN (20:08)
[2023-10-18] MEDS ORDERED: CARBOHYDRATES FOR HYPOGLYCEMIA PO PRN (20:08)
[2023-10-18] MEDS ORDERED: LORazepam 0.5 MG TAB PO PRN (20:12)
[2023-10-18] MEDS ORDERED: Patient's HEIGHT &/or WEIGHT Needed SCH (20:30)
[2023-10-18] MEDS: LAVAGE SOLUTION 4000ML PO ONE (21:09)
[2023-10-18] MEDS: LIDOCAINE 2% JELLY 5 ML TUBE EXT ONE (21:23)
[2023-10-18] MEDS: KETOROLAC 30 MG/ML VIAL IV STA (21:23)
[2023-10-18] MEDS: INSULIN ASPART PER UNIT CHARGE SC SCH (21:43)
[2023-10-18] MEDS: METOPROLOL TARTRATE 25 MG TAB PO SCH (21:47)
[2023-10-18] MEDS: GABAPENTIN 600 MG TAB PO SCH (21:47)
[2023-10-18] MEDS: guaiFENesin 600 MG TABCR PO SCH (21:47)
[2023-10-18] MEDS: NALTREXONE HCL 50 MG TAB PO SCH (21:48)
[2023-10-18] MEDS: ATORVASTATIN 40 MG TAB PO SCH (21:48)
[2023-10-18] MEDS: GABAPENTIN 300 MG CAP PO SCH (21:48)
[2023-10-18] MEDS: POLYETHYLENE (MIRALAX) 17 GM PACK PO SCH (21:50)
[2023-10-18] MEDS: ENOXAPARIN INJ 40 MG/0.4 ML SYR SQ SCH (21:57)
[2023-10-18] MEDS: ACETAMINOPHEN 325 MG TAB PO SCH (23:00)
[2023-10-18] MEDS: MAGNESIUM HYDROXIDE SUSP 30 ML UDC PO SCH (23:00)
[2023-10-19] MEDS ORDERED: MICONAZOLE NITRATE POWDER 85 GM EXT PRN (00:09)
[2023-10-19 07:46] VITALS: TEMP 97.7
--- NOTE | 2023-10-19 08:04 | Hospitalist Progress Note ---
Date of Service October 19, 2023 Assessment & Plan (1) Abdominal pain: (2) Constipation: (3) Proctitis: (4) UTI (urinary tract infection): (5) Cigarette nicotine dependence: (6) Type 2 diabetes mellitus with morbid obesity: (7) Generalized anxiety disorder with panic attacks: (8) (HFpEF) heart failure with preserved ejection fraction: (9) Hypertension: (10) Sleep apnea: Plan 57 y/o female with PMH of HTN, HFpEF, chronic venous insufficiency, Paroxysmal Afib, HLD, Obesity, NAFLD, Severe NANI, GERD, tobacco smoking, Anxiety here due to abdominal pain found with constipation/nonspecific proctitis and UTI. Had colonoscopy earlier this month (high risk colon ca/fam hx) with Dr Sahu on 10/09 which showed one 4mm polyp in rectum, diverticulosis in the sigmoid colon as well as internal hemorrhoids (path w/ hyperplastic polyp) Reported last bowel movement was Sunday of last week, approximately 6-=7 days ago. Gastroparesis w/ underlying DM. A1c 6.1 and is also on Mounjaro for weight loss since May of this year, may not be best choice for her if chronic issues w/ constipation. Of note, also was tx for a UTI in May of this year and received Augmentin rx for taylor bite right leg in July at urgent care monitor for any cdiff w/ diarrhea given recent abx use and c-scope. check mag w/ labs Abdominal pain Constipation/ Proctitis - Abdominal pain, no mild leukocytosis (12.80), no fever - Abdominal pain worsen with anxiety - Ct abdominal: There is rectosigmoid fecal retention and mild to moderate constipation. The rectal wall appears mildly thickened with faint surrounding infiltration. Correlate clinically for evidence of a nonspecific proctitis. - s/p Milk and Molasses enema with no bowel movement - Miralax TID, milk of magnesia prn - Golytely given - Toradol IV 30 mg once, Toradol PO 15 mg PRN - Tylenol 650mg q4hr - Zofran prn - Avoid opioids Liquid diet UTI - UA: + Leukocyte esterase, + urine bacteria, + urine nitrite, increased wbc - continue Ceftriaxone 2 g IV daily - Pending Urine culture - CBC am DM2 with neuropathy - home Mounjaro hold - continue gabapentin - Novalog SS1 -Hgb A1C am HTN: continue Metoprolol tartare 25 mg BID HFrEF - No signs of acute failure on exam today - continue home meds Paroxysmal AFib - EKG: sinus rhythm - continue metoprolol HLD - continue atorvastatin NANI - CPAP qhs Tobacco use - Nicotine patch ordered Anxiety with panic attacks Ativan prn continue Dispo: Medsurg FEN: NPO for now DVT prophylaxis Lovenox sq daily Full code Admission and Anticipated Discharge Date Admission Date: October 18, 2023 Results & Data Results & Data Vital Signs (Past 12 Hours) Vital Signs Temp Pulse Pulse Resp BP Pulse Ox O2 Del Method 10/19/23 07:43 36.5 C 78 16 101/68 93 Room Air 10/19/23 00:31 81 21 93 10/18/23 20:50 36.7 C 91 H 18 103/68 93 Room Air FiO2 10/19/23 07:43 10/19/23 00:31 21 10/18/23 20:50 PG Care Time/CCT Total # of Minutes Spent Total Time Spent with Patient: Total time spent is greater than 50% in coordination of care (as documented) at patient's floor/unit and/or counseling patient: Coding Diagnoses Abdominal pain R10.84 Abdominal location: generalized Constipation K59.00 Constipation type: unspecified constipation type Proctitis K62.89 UTI (urinary tract infection) N30.00 Hematuria presence: without hematuria Urinary tract infection type: acute cystitis Cigarette nicotine dependence F17.210 Type 2 diabetes mellitus with morbid obesity E11.69; E66.01 Generalized anxiety disorder with panic attacks F41.1; F41.0 (HFpEF) heart failure with preserved ejection fraction I50.30 Hypertension I10 Sleep apnea G47.30 (1) Abdominal pain Abdominal location: generalized Qualified Code(s): R10.84 - Generalized abdominal pain (2) Constipation Constipation type: unspecified constipation type Qualified Code(s): K59.00 - Constipation, unspecified (4) UTI (urinary tract infection) Hematuria presence: without hematuria Urinary tract infection type: acute cystitis Qualified Code(s): N30.00 - Acute cystitis without hematuria
[2023-10-19 08:35] LABS: Basophils # (auto) 0.02 K/uL (0.00-0.20); Basophils % (auto) 0.3 %; Eosinophils # (auto) 0.11 K/uL (0.00-0.50); Eosinophils % (auto) 1.5 %; Hematocrit (blood only) 39.4 % (37.0-47.0); Hemoglobin 13.1 g/dl (12.0-16.0); Immature Granulocytes # (auto) 0.02 K/uL (0.01-0.20); Immature Granulocytes % (auto) 0.3 %; Lymphocytes # (auto) 1.27 K/uL (1.20-3.40); Lymphocytes % (auto) 16.8 %; Mean Corpuscular Hgb Conc 33.2 g/dL (32.0-36.0); Mean Corpuscular Volume 90.4 fL (80.0-100.0); Monocytes # (auto) 0.58 K/uL (0.11-0.59); Monocytes % (auto) 7.7 %; Neutrophils # (auto) 5.58 K/uL (1.40-6.50); Neutrophils % (auto) 73.4 %; Platelet Count 198 K/uL (130-400); RDW Coefficient of Variation 14.9 % (11.5-14.5); RDW Standard Deviation 49.3 fL (36.4-46.3); Red Blood Count 4.36 M/uL (4.20-5.40); White Blood Count 7.58 K/ul (4.8-10.8)
[2023-10-19] MEDS: buPROPion XL 150 MG TABCR PO SCH (08:36)
[2023-10-19] MEDS: CYANOCOBALAMIN (B-12) 500 MCG TABLET PO SCH (08:37)
[2023-10-19] MEDS: FOLIC ACID 400 MCG TAB PO SCH (08:38)
[2023-10-19] MEDS: PANTOprazole 40 MG TAB PO SCH (08:51)
[2023-10-19] MEDS: NICOTINE 21 MG/24 HR TDSY TD SCH (08:52)
[2023-10-19] MEDS: SACCHAROMYCES BOULARDII 250 MG CAP PO SCH (08:54)
[2023-10-19 09:15] LABS: Estimated Average Glucose 128 mg/dl; Hemoglobin A1C 6.1 % (4.5-5.6)
[2023-10-19 09:26] LABS: Albumin Globulin Ratio 1.3 (0.9-2); Albumin Level 3.4 gm/dl (3.4-5.0); BUN Creatinine Ratio 18.8 (10-20); Bilirubin,Total 0.7 mg/dl (0.2-1.0); Calcium 8.8 mg/dl (8.6-10.3); Est GFR (African American) 93.5 ml/min; Est GFR (Non-African American) 80.7 ml/min; Globulin 2.6 gm/dl (2.5-4.0); Potassium 3.7 mmol/L (3.5-5.1)
[2023-10-19 10:46] LABS: Magnesium 2.1 mg/dl (1.7-2.4)
--- NOTE | 2023-10-19 10:52 | Discharge Summary ---
Discharge Summary Date of Service October 19, 2023 Principal Dx & Hospital Course #1 = Principal Diagnosis (1) Abdominal pain: 57 y/o female with PMH of HTN, HFpEF, chronic venous insufficiency, Paroxysmal Afib, HLD, Obesity, NAFLD, Severe NANI, GERD, tobacco smoking, Anxiety here due to abdominal pain found with constipation/nonspecific proctitis and UTI. Had colonoscopy last week with Dr Sahu on 10/09 which showed one 4mm polyp in rectum, diverticulosis in the sigmoid colon as well as internal hemorrhoids (path w/ hyperplastic polyp) Reported last bowel movement was Sunday of last week, approximately 6-=7 days ago. ?Gastroparesis w/ underlying DM. A1c 6.1 and is also on Mounjaro for weight loss since May of this year, may not be best choice for her if chronic issues w/ constipation. CTAP with rectosigmoid fecal retention and mild-moderate constipation. Rectal wall thickening w/ faint surrounding infiltration. Nonspecific proctitis s/p Milk and Molasses enema with no bowel movement and was placed on miralax TID with Golytly prep with SIGNIFICANT improvement/resolution in abdominal pain and wanting to go home. Encouraged continued bowel regimen daily for now until ensuring continued movements. To monitor for any diarrhea on abx as + UA/culture (uses bide at home, difficult w/ personal hygiene w/ body habitus) and given Ceftriaxone IV on admission and asked to give dose on day of discharge early as she is wanting to go and will plan for course of Keflex at discharge to complete given prior pansensitive ecoli and no upper urinary findings on CTAP and will call if urine culture with any resistance. Presently growing gram negative bacilli. Also encouraged to hold off resumption in her Mounjaro until bowel function normalizes and again encouraged daily regimen prior to getting backed up to start. (2) Constipation: resolved w/ tx as above (3) Proctitis: (4) UTI (urinary tract infection): +UA on admission, sx. Urine cx pending gram negative bacilli. prior w/ ecoli pansensitive Ceftriaxone IV x 2 doses, keflex PO sent at dc to complete course and will call if any resistance/need to change WBC normalized on repeat labs, afebrile (5) Type 2 diabetes mellitus with morbid obesity: DM2 with neuropathy - home Mounjaro hold -- as above, monitor to resume once bowel function staying normal - continue gabapentin - Novalog SS1 A1c 6.1 ?underlying gastroparesis encouraged once daily miralax to help keep regular (6) (HFpEF) heart failure with preserved ejection fraction: HFrEF - No signs of acute failure on exam today. home meds continued. outpt f/u Paroxysmal AFib - EKG: sinus rhythm on admission. Examines NS. Continued on metoprolol (7) Hypertension: HTN: Chronic/stable.continued Metoprolol tartare 25 mg BID HLD - continued atorvastatin (8) Cigarette nicotine dependence: Other chronic medical problems Tobacco use - Nicotine patch ordered. cessation to be encouraged (9) Generalized anxiety disorder with panic attacks: Anxiety with panic attacks Ativan prn continued mood stable (10) Sleep apnea: NANI - CPAP qhs DVT proph: lovenox SQ while inpatient Plan discharged home on Keflex for urinary coverage. encouraged continued daily bowel regimen to prevent constipation Notes For Next Care Provider holding mounjaro for now, recs for daily bowel regimen to prevent issues Medication Changes From Visit Hold mounjaro Miralax daily Keflex PO to complete course for UTI Admission HPI Per Admitting Provider Lo is a 57 y/o female with PMH of HTN, HFpEF, chronic venous insufficiency, Paroxysmal Afib, HLD, Obesity, NAFLD, Severe NANI, GERD, tobacco smoking, Anxiety that presented to the ED due to 6 days of abdominal/ rectal pain and nausea. She describe the pain as crampy that come in waves. Additionally she refers some dysuria since 3 days ago. She had a similar event 4 days ago that was seen in the ED, at that moment he was found with constipation. She refers last bowel moment was on Sunday last week. She refers had being trying Miralax, Dulcolax and an enema without resolution of symptoms. She had a colonoscopy done on 10/09 that showed diverticulosis and a polyp. Denied decrease appetite, SOB, chest pain, palpitation, hematuria, black stool or hematochezia. ED course: Labs remarkable for mild leukocytosis (12.80), Alkaline phosphatase: 108. UA consistent with positive urine leukocyte esterase, urine nitrate, increased wbc and + bacteria. CT abdomen with IV contrast: There is rectosigmoid fecal retention and mild to moderate constipation. The rectal wall appears mildly thickened with faint surrounding infiltration. Correlate clinically for evidence of a nonspecific proctitis. IV bolus of NSS given. For pain she was given IV morphine 4 mg and Dilaudid 0.5 mg. Milk and molasses enema was administrated without resolution. Ativan 0.5 mg was administrated due to anxiety. IV Ceftriaxone 2g was given as well. Admission Exam Per Admitting Provider Constitutional: WD/WN, vitals as above ENMT: external ear and nose normal, oropharynx normal Respiratory: normal respiratory effort, lungs clear to auscultation Cardiovascular: RRR, no murmur, no edema Gastrointestinal (Abdomen): Inspection/Auscultation: normal bowel sounds Percussion/Palpation: + abdomen tender (Left lower abdomen) and abdomen soft; no guarding and abdomen not rigid Psychiatric: Orientation: alert and oriented x 3 Mood: + anxious mood Discharge Exam General: 57yo morbidly obese female sitting up at side of bed, reports feeling much better/wanting to go home Head atraumatic, normocephalic, thick neck, trachea midline, mmm resp: even/unlabored, diminished in the bases but no distress/rales/wheezing, on room air 97% CV: RRR, no significant m/r/g, no pitting edema, chronic venous stasis changes GI: +BS, soft/obese, nontender no charles MSK/Neuro: nonfocal, no slurred speech, answering questions appropriately Psych: AOx3, cooperative with exam Discharge Plan Discharge Items Patient Disposition: Home - Self-Care Reason For Visit: PROCTITIS Discharge Diagnosis: Constipation, UTI Condition on Discharge: Fair Goals: You have been hospitalized for an acute medical problem. During your stay at [facility], we have made an effort to correct the problem that brought you to the hospital while keeping you as comfortable as possible. Medications were used to bring your condition under control and your discharge instructions will include directions for any medications you should take after leaving the hospital. Please make sure you see your Primary Care Provider as part of your follow up plan. Activity: As commented below Non-emergency contact: Primary Care Provider and Juvenile Justice Specialist Call non-emergency contact if: you have any medication questions, your symptoms worsen, your pain is not controlled, your pain is unusual for you and you have a fever Follow-up/Referrals: Gisella Slaughter MD [Primary Care Provider] - 08/28/24 11:00 am Diet: Carb Consistent or DM2 and Low Fiber Addtl Attending Provider Instructions: You have been hospitalized for abdominal pain suspected due to constipation and urinary tract infection. We used medications with bowel prep and you had resolution in constipation and your urine culture is still pending. We are giving a dose of IV antibiotics before discharge and will call you if any resistance to the oral cephalexin sent at discharge. You should start the cephalexin tomorrow and should be four times daily for anot her 3 days. Please continue daily miralax to help keep bowels regular and hold off resuming your Mounjaro until becoming normal. You may benefit from addition of fiber to diet but can be discussed with primary care in follow up which has been rescheduled for this upcoming week. Please follow up with medical provider after discharge to monitor your status. Please return to the ER with any fever/chills, worsening abdominal pain or for any other symptoms concerning for you. Take care! Pending Studies at Discharge: Yes Studies:: urine culture pending Stand-Alone Forms: My [facility], Smoking Cessation Medications and DC Order Prescriptions: New cephalexin 500 mg capsule 500 mg PO Q6H 3 Days Qty: 12 0RF Continued bupropion HCl 150 mg tablet extended release 24 hr 150 mg PO QAM Qty: 90 0RF buspirone 10 mg tablet 5 - 10 mg PO TID PRN (Reason: anxiety) Qty: 60 1RF metoprolol tartrate 25 mg tablet 25 mg PO BID Qty: 180 3RF cholecalciferol (vitamin D3) 50 mcg (2,000 unit) capsule 50,000 unit PO WK Rx Instructions: take once a week. Sunday gabapentin 600 mg tablet See Rx Instructions .ROUTE .COMPLEX Rx Instructions: Take 600mg by mouth 2 hours before bedtime and 300mg by mouth at bedtime Saccharomyces boulardii [Probiotic (S.boulardii)] 250 mg capsule 250 mg PO QAM nutrafol 4 tabs PO QAM guaifenesin [Mucinex] 600 mg Tablet Extended Release 12hr 1,200 mg PO Q12H vitamin [id number]-[id number] acid 0.5-1 mg Tablet 1 tab PO QAM levocetirizine [Xyzal] 5 mg Tablet 5 mg PO DAILY PRN (Reason: allergies) atorvastatin [Lipitor] 40 mg tablet 40 mg PO QPM nystatin 100,000 unit/gram ointment 1 applic topical BID PRN (Reason: yeast) naltrexone 50 mg tablet 25 mg PO BID Rx Instructions: take 1/2 tab daily x 2 wks then increase to 1 tab daily omeprazole 20 mg capsule,delayed release(DR/EC) 20 mg PO QAM solifenacin 5 mg tablet 5 - 10 mg PO DAILY Azo Cranberry 250 mg Tablet,Chewable 250 mg PO QAM Held tirzepatide 7.5 mg/0.5 mL pen injector 7.5 mg subcut WK Hold Instructions: Resume on 10/27/23. hold until bowel function normalizes Rx Instructions: INJECT 7.5MG (0.5ML) SUBCUTANEOUSLY ONCE WEEKLY. Sun No Action (DME) blood-glucose meter [Artilleryuch Verio Flex meter] Misc See Rx Instructions .Route Qty: 1 0RF Rx Instructions: As directed (DME) LeanAppsTouch Verio test strips Strip See Rx Instructions .Route Qty: 100 3RF Rx Instructions: test twice daily As directed (DME) lancing device with lancets [Artilleryuch Delica Plus Lanc Dev] Kit See Rx Instructions .Route Qty: 100 3RF Rx Instructions: test twice daily As directed Discharge Orders: Discharge Order (Routine); Ordered 10/19/23 Ordered By: Valerie Greco Admission Data Admit Date/Time: 10/18/23 19:22 Attending Provider: Tim Robbins Admit Provider: Lissa Ruby Primary Care Provider: Gisella Slaughter Other Providers: Mustapha Jones Hospital Stay Data Consultations 10/18/23 17:29 ED Decision to Admit Stat Diagnostic Imagining Performed Abdomen/Pelvis CT 10/18/23 13:20 CT SCAN OF THE ABDOMEN AND PELVIS WITH IV CONTRAST CLINICAL HISTORY: Perineal pain COMPARISON STUDY: Abdominal CT dated 10/16/2023. TECHNIQUE: Following the IV administration of 120 cc of Optiray 320, CT scan of the abdomen and pelvis is performed from the lung bases to the proximal femora. Images are reviewed in the axial, sagittal, and coronal planes. IV contrast was administered without complication. A dose lowering technique was utilized adhering to the principles of ALARA. The examination is degraded by large body habitus, and by streak artifact from the body wall abutting the CT gantry. CT DOSE: 1760.15 mGy.cm FINDINGS: Lung bases: The patient is status post midline sternotomy and mitral valve surgery. The heart is normal in size and without pericardial effusion. The lung bases are clear noting mild dependent atelectasis. Liver: The contrast-enhanced liver is enlarged, measuring 20.7 cm in length. Attenuation is diffusely diminished indicating steatosis. Fatty sparing is seen adjacent to the gallbladder fossa. There is no intrahepatic biliary ductal dilatation. The hepatic veins and portal veins are patent. Gallbladder: Unremarkable. Spleen: The spleen is enlarged measuring 14.2 cm in length. Pancreas: Mildly atrophic and grossly unremarkable.. Adrenal glands: Atrophic. Kidneys: The contrast enhanced kidneys are normal in size and without hydronephrosis. The kidneys enhance symmetrically. Abdominal vasculature: The abdominal aorta is normal in course and caliber noting mild atherosclerotic calcification. Bowel: There is retrosigmoid fecal retention and mild to moderate constipation. No bowel obstruction is seen. The appendix is not identified and reported surgically absent. The rectal wall appears mildly thickened with surrounding infiltration. A duodenal diverticulum is incidentally noted. Peritoneum: There is no intraperitoneal free air or abdominal ascites. There is a large fat-containing umbilical/periumbilical hernia. Lymphadenopathy: None. Pelvic viscera: There is a small focus of gas within the bladder lumen which may be related to instrumentation. The bladder is otherwise normal as imaged. The uterus and adnexa are normal as visualized. Skeletal structures: There is mild lumbosacral spondylosis. No lytic or blastic lesions are seen. IMPRESSION: 1. There is rectosigmoid fecal retention and mild to moderate constipation. 2. The rectal wall appears mildly thickened with faint surrounding infiltration. Correlate clinically for evidence of a nonspecific proctitis. 3. The liver is enlarged and steatotic. 4. Splenomegaly. 5. Additional findings as above. ACT 112: Negative or not required by law. Electronically signed by: Luis Calderon M.D. 10/18/2023 4:34 PM Discharge Instructions Given to Patient (Per Discharging Provider) You have been hospitalized for abdominal pain suspected due to constipation and urinary tract infection. We used medications with bowel prep and you had resolution in constipation and your urine culture is still pending. We are giving a dose of IV antibiotics before discharge and will call you if any resistance to the oral cephalexin sent at discharge. You should start the cephalexin tomorrow and should be four times daily for another 3 days. Please continue daily miralax to help keep bowels regular and hold off resuming your Mounjaro until becoming normal. You may benefit from addition of fiber to diet but can be discussed with primary care in follow up which has been rescheduled for this upcoming week. Please follow up with medical provider after discharge to monitor your status. Please return to the ER with any fever/chills, worsening abdominal pain or for any other symptoms concerning for you. Take care! Supervising Physician Co-Signing Physician Notes The patient was not seen by me. The chart was reviewed. Case discussed with MACARIO Long. Agree with assessment and plan Total Time Total Time Spent Total Time Spent (In Minutes): 35 Coding Level of Care Code 53662 INP/OBS DISCH >30 MIN Diagnoses Abdominal pain R10.84 Abdominal location: generalized Constipation K59.00 Constipation type: unspecified constipation type Proctitis K62.89 UTI (urinary tract infection) N30.00 Hematuria presence: without hematuria Urinary tract infection type: acute cystitis Type 2 diabetes mellitus with morbid obesity E11.69; E66.01 (HFpEF) heart failure with preserved ejection fraction I50.30 Hypertension I10 Cigarette nicotine dependence F17.210 Generalized anxiety disorder with panic attacks F41.1; F41.0 Sleep apnea G47.30
[2023-10-19 11:54] VITALS: BP 114/74; PULSE 70; RESP 18; O2SAT 97
[2023-10-19] MEDS ORDERED: cefTRIAXone SODIUM 2,000 MG/50 ML BAG IV SCH ×2 (15:00→16:00)
--- NOTE | 2023-10-19 18:30 | Billing Data ---
Date of Service October 18, 2023 Coding Level of Care Code 38911 INT INP/OBS CARE
[2023-10-21] MEDS ORDERED: ERGOCALCIFEROL 1250 MCG (50,000 UNITS) CAP PO SCH (09:00)
== END 2023-10-19 14:09 | disposition home or self-care (01) | DRG 394 ==
LOC: ED 13:12 → EDINP 19:22 → SUATTDRO 19:22 → 3W 20:07